=== PATIENT | male | born 1985 | race Caucasian/White ===

== ENCOUNTER 2016-09-14 10:04 | Emergency (ER) | payer OTHER ==
[2016-09-14 10:31] LABS: Hematocrit 43 % (42-52); Hemoglobin 14.4 g/dl (14.0-18.0); Mean Corpuscular HGB Conc 34 g/dl (31-36); Mean Corpuscular Hemoglobin 30 pg (27-31); Mean Corpuscular Volume 87 fL (80-94); Mean Platelet Volume 8 um3 (7.4-10.4); Red Blood Count 4.88 10^6/ul (4.0-5.4); Red Cell Distribution Width 13 % (10.5-15); White Blood Count 10.7 10^3/ul (3.5-10.8)
--- NOTE | 2016-09-14 10:40 | RAD ---
Indication: Seizures. Single frontal view of the chest performed at 1015 hours was reviewed. No prior study is available for comparison. No mediastinal shift is noted. Heart is of normal size and configuration. Lung ricketts appear clear. IMPRESSION: NO ACTIVE CARDIOPULMONARY DISEASE IS NOTED.
[2016-09-14 10:43] LABS: ALT 42 U/L (7-52); AST 22 U/L (13-39); Albumin 4.7 g/dL (3.2-5.2); Alkaline Phosphatase 70 U/L (34-104); Anion Gap 11 mmol/L (2-11); BUN/Creatinine Ratio 8.6 (8-20); Blood Urea Nitrogen 10 mg/dL (6-24); CO2 Carbon Dioxide 19 mmol/L (22-32); Calcium 9.4 mg/dL (8.6-10.3); Chloride 107 mmol/L (101-111); Creatine Kinase 134 U/L (10-223); EGFR African American 95.7 (>60); EGFR Non-African American 74.4 (>60); Globulin 2.5 g/dL (2-4); Glucose 134 mg/dL (70-100); Potassium 3.9 mmol/L (3.5-5.0); Sodium 137 mmol/L (133-145); Total Protein 7.2 g/dL (6.4-8.9)
[2016-09-14] MEDS ORDERED: LORazepam INJ* 2 MG/ML 1 ML VIAL IV PUSH ONE (10:52)
[2016-09-14 11:04] LABS: Alcohol < 10 mg/dL (<10)
[2016-09-14 11:13] LABS: TSH (Thyroid Stimulating Horm) 1.76 mcIU/mL (0.34-5.60)
--- NOTE | 2016-09-14 12:09 | RAD ---
Indication: Seizures, left orbital hematoma. CT of the brain was performed without IV contrast. Ventricular structures are midline. No midline shift is noted. The extraction spaces are unremarkable. There is no evidence of intracranial mass or hemorrhage. No other high or low density lesions are identified. Mastoid air cells and paranasal sinuses are otherwise unremarkable. When compared to previous exam of January 31, 2011 no significant change is noted. IMPRESSION: No intracranial mass or hemorrhage is noted.
--- NOTE | 2016-09-14 12:13 | RAD ---
Indication: Left orbit injury. CT of the facial bones was obtained in the axial plane. Sagittal and coronal reconstructed images were obtained. The nasal arch demonstrates no evidence of fracture. The orbits are intact without evidence of fracture. Zygomatic arch and skull base demonstrates no fracture. The maxilla including the pterygoid plates and hard palate are unremarkable with no fracture. The nasal spine is unremarkable. Mandible demonstrates no evidence of fracture. Hyoid bone and visualized cervical spine are unremarkable. IMPRESSION: No fracture of the facial bones is identified.
[2016-09-14] MEDS ORDERED: Ibuprofen TAB* 400 MG PO ONE (13:02)
[2016-09-14] MEDS ORDERED: lamoTRIgine TAB(*) 25 MG PO ONE (13:07)
[2016-09-14] MEDS ORDERED: lamoTRIgine TAB(*) 100 MG PO ONE (14:00)
[2016-09-14 14:17] LABS: Urine Bacteria Absent (Absent); Urine Bilirubin Negative (Negative); Urine Glucose Negative (Negative); Urine Nitrite Negative (Negative)
[2016-09-14 15:06] VITALS: BP 121/66
[2016-09-16 13:49] LABS: Levetiracetam <2.0 mcg/mL
[2016-09-16 13:55] LABS: Lamotrigine 6.7 mcg/mL (2.5 - 15.0)
--- NOTE | 2016-09-28 18:27 | ED ---
Jg Daniels Billy, scribed for Alisa Longo MD on 09/14/16 at 1045 . Neurological HPI - HPI Summary HPI Summary: Patient is a 31 year-old male with a history of seizures BIBA to [facility] for evaluation of a seizure this morning. He presents to the ED with abrasions to the left eye and nose, and he is post-ictal. He is here in the ED with his mother, although she states that she did not witness the seizure. She states that she received a phone call from a friend who notified her that her son was in the hospital after a seizure. To the mother's knowledge, the patient's last seizure was in May 2016. The patient follows Dr. Medina for neurology. He takes 2 lamotrigine in the morning as well as 2 lamotrigine and 4 zonisamide at night. He also takes Prozac for depression. The mother reports that he missed his morning medications today. - History of Current Complaint Chief Complaint: EDSeizure Stated Complaint: SEIZURE Time Seen by Provider: 09/14/16 10:11 Hx Obtained From: Patient, Family/Accounts Supervisor - mother Onset/Duration: Sudden Onset Timing: Intermittent Episodes Lasting: - minutes at most Onset Severity: Moderate Current Severity: None Seizure Severity: Moderate Number of Seizures: 1 Neurological Deficit Location: Generalized Pain Intensity: 0 Pain Scale Used: 0-10 Numeric Character: Other: - seizure Syncope Context: Unwitnessed - unwitnessed by mother Frequency: Episodes x___ - 1, Episodes Lasting ____ (in Mins/Days/Weeks/Years) Seizure Character: Total-Clonic Aggravating: Unknown - missed his morning medications Alleviating: Spontanious Resolution Associated Signs and Symptoms: Positive: Confusion - post ictal initially, now resolved TPA Considered: No Related Hx: Seizure - hx of, on meds - Allergy/Home Medications Allergies/Adverse Reactions: Allergies Allergy/AdvReac Type Severity Reaction Status Date / Time No Known Allergies Allergy Verified 09/27/12 17:28 PMH/Surg Hx/FS Hx/Imm Hx Previously Healthy: No Endocrine/Hematology History: Denies: Hx Diabetes Neurological History: Reports: Hx Seizures Psychiatric History: Reports: Hx Depression - Surgical History Hx Anesthesia Reactions: No Infectious Disease History: No Infectious Disease History: Denies: Traveled Outside the [place] in Last 30 Days - Family History Known Family History: Positive: Other - breast CA Family History: Father is alive, age 64, has HIV, but that is his adopted father. His biological father at an early age of alcohol and cocaine abuse and his mother is alive with breast cancer. He has a half sister, alive and well. - Social History Alcohol Amount: Per medical records, the patient drinks alcohol in excess. Hx Substance Use: Yes Substance Use Type: Reports: Marijuana Hx Tobacco Use: Yes Smoking Status (MU): Current Every Day Smoker Review of Systems Negative: Fever Eyes: Negative ENT: Negative Cardiovascular: Negative Respiratory: Negative Gastrointestinal: Negative Musculoskeletal: Negative Neurological: Other - seizure Positive: Headache Psychological: Normal All Other Systems Reviewed And Are Negative: Yes Physical Exam Triage Information Reviewed: Yes Vital Signs On Initial Exam: Initial Vitals Temp Pulse Resp BP Pulse Ox 99.1 F 107 19 130/68 97 09/14/16 10:05 09/14/16 10:05 09/14/16 10:05 09/14/16 10:05 09/14/16 10:05 Vital Signs Reviewed: Yes Appearance: Positive: No Pain Distress, Well-Nourished, Ill-Appearing - tachycardia noted. Negative: Signs of Trauma Skin: Positive: Warm, Dry Head/Face: Positive: Other - There is an abrasion to the nasal bridge, as well as an abrasion and swelling to the left periorbital region. Eyes: Positive: EOMI, DESTINI, Conjunctiva Clear ENT: Positive: Hearing grossly normal, TMs normal. Negative: Muffled/hoarse voice Neck: Positive: Supple, Nontender, No Lymphadenopathy Respiratory/Lung Sounds: Positive: Clear to Auscultation, Breath Sounds Present Cardiovascular: Positive: RRR, Pulses are Symmetrical in both Upper and Lower Extremities. Negative: Murmur Abdomen Description: Positive: Nontender, Soft. Negative: Distended, Guarding Bowel Sounds: Positive: Present Musculoskeletal: Positive: Strength/ROM Intact. Negative: Edema Left, Edema Right Neurological: Positive: Sensory/Motor Intact, Alert, Oriented to Person Place, Time, CN Intact II-III, Other - Patient is post-ictal, later resolves. Negative : Facial Droop, Focal Deficit @, Slurred Speech Psychiatric: Positive: Affect/Mood Appropriate Diagnostics - Vital Signs Vital Signs Temp Pulse Resp BP Pulse Ox 09/14/16 10:08 99.1 F 110 27 130/68 97 09/14/16 10:05 99.1 F 107 19 130/68 97 - Laboratory Lab Results: Lab Results 09/14/16 09/14/16 Range/Units 10:14 10:15 WBC 10.7 (3.5-10.8) 10^3/ul RBC 4.88 (4.0-5.4) 10^6/ul Hgb 14.4 (14.0-18.0) g/dl Hct 43 (42-52) % MCV 87 (80-94) fL MCH 30 (27-31) pg MCHC 34 (31-36) g/dl RDW 13 (10.5-15) % Plt Count 300 (150-450) 10^3/ul MPV 8 (7.4-10.4) um3 Neut % (Auto) 78.4 (38-83) % Lymph % (Auto) 13.1 L (25-47) % [place] % (Auto) 7.2 (1-9) % Eos % (Auto) 0.4 (0-6) % Baso % (Auto) 0.9 (0-2) % Absolute Neuts (auto) 8.4 H (1.5-7.7) 10^3/ul Absolute Lymphs (auto) 1.4 (1.0-4.8) 10^3/ul Absolute Monos (auto) 0.8 (0-0.8) 10^3/ul Absolute Eos (auto) 0 (0-0.6) 10^3/ul Absolute Basos (auto) 0.1 (0-0.2) 10^3/ul Absolute Nucleated RBC 0 10^3/ul Nucleated RBC % 0 POC Glucose (mg/dL) 91 (74-106) mg/dL Result Diagrams: 09/14/16 10:15 09/14/16 10:15 Lab Statement: Any lab studies that have been ordered have been reviewed, and results considered in the medical decision making process. - Radiology CXR Xray Interpretation: No Acute Changes Radiology Interpretation Completed By: Radiologist - CT brain CT Interpretation: No Acute Changes CT Interpretation Completed By: Radiologist maxillofacial CT Interpretation: No Acute Changes CT Interpretation Completed By: Radiologist - EKG 1002 Cardiac Rate: Tachycardia - 105 bpm EKG Rhythm: Sinus Tachycardia ST Segment: Non-Specific - Non-specific ST/T-wave changes, no acute changes EKG Interpretation: nml AV and IV conduction time, nml QTc, negative axis -5 EKG Comparison: No Significant Change - Negative axis compared to 01/31/2011 Re-Evaluation - Re-Evaluation First Eval Re-Evaluation Time: 13:45 - headache gone, no longer post ictal , no seizure activity Change: Improved Course/Dx - Course Assessment/Plan: 31 year-old male coming to the ED for evaluation of one seizure this morning. He has a history of seizures, for which he normally takes 2 lamotrigine in the morning as well as 2 lamotrigine and 4 zonisamide at night. However, he did not take his morning medications today. EKG shows sinus tachycardia with nonspecific ST/T-wave changes, normal QTc, without any acute changes. CXR shows no acute findings. Brain and maxillofacial CT imaging show no acute findings. In the ED course, patient was given morphine and ativan. Patient care discussed with Dr. Agosto, who advised us to give him his morning dose of lamictal and to increase zonisamide to 500mg daily. Patient will be discharged home to follow up with PCP. - Differential Dx Differential Diagnoses Neuro: Positive: Medication Reaction, Metabolic Abnormality, Seizure Disorder - Diagnoses Provider Diagnoses: acute on chronic seizure disorder - Physician Notifications Discussed Care of Patient With: Dr. Agosto (neurology) @ 1257: recommends to increased zonisamide, give him his morning dose of lamictal in the ED, and to prepare to discharge. Discharge - Discharge Plan Condition: Stable Disposition: HOME Prescriptions: Zonisamide(NF) [Zonegran(NF)] 500 mg PO DAILY #100 cap Patient Education Materials: Recurrent Seizures in Adults (ED) Referrals: Marie Medina MD [Medical Doctor] - 1 Week Additional Instructions: RETURN TO THE EMERGENCY ROOM WITH ANY MORE SEIZURES. TAKE MEDICATIONS DIRECTED; INCREASE ZONISAMIDE TO 500MG DAILY. The documentation as recorded by the Jg flood Billy accurately reflects the service I personally performed and the decisions made by , Alisa Longo MD.
== END 2016-09-14 15:13 | disposition home or self-care (01) ==
LOC: ED 10:04
DX: G40.909 Epilepsy, unspecified, not intractable, without status epilepticus (principal); R56.9 Unspecified convulsions; S00.212A Abrasion of left eyelid and periocular area, initial encounter; X58.XXXA Exposure to other specified factors, initial encounter; Y93.9 Activity, unspecified; Y92.9 Unspecified place or not applicable; Y99.9 Unspecified external cause status; R41.0 Disorientation, unspecified
CPT/HCPCS: 36415; 70450; 70486; 71010; 80053; 80175; 80177; 80203; 80320; 81003; 81015; 82550; 83605; 83735; 84443; 85025; 85610; 85730; 86703; 93005; 96374; 99283; A9270-GY; G0480; J2060

== ENCOUNTER 2018-12-24 17:40 | Inpatient (IN) | payer OTHER ==
[2018-12-24] MEDS ORDERED: Acetaminophen TAB* 325 MG ONE (17:48)
[2018-12-24] MEDS ORDERED: Ondansetron ODT TAB* 4 MG ONE ×2 (17:48→18:30)
[2018-12-24] MEDS ORDERED: Ibuprofen TAB* 400 MG ONE (18:30)
[2018-12-24] MEDS ORDERED: Ibuprofen TAB* 400 MG PO ONE (18:37)
[2018-12-24] MEDS ORDERED: Ondansetron ODT TAB* 4 MG PO ONE (18:37)
[2018-12-24] MEDS ORDERED: Levofloxacin 750 MG IVPREMIX(* 750 MG/150 ML BAG IVPB ONE (19:04)
[2018-12-24] MEDS ORDERED: NS 0.9% 1000 ML** 1,000 ML IV ONE ×2 (19:04→20:22)
--- NOTE | 2018-12-24 19:04 | ED ---
Abdominal Pain/Male - HPI Summary HPI Summary: A 33 y/o male presents to [facility] with a chief complaint of abdominal pain for the past three days. He also reports back, neck, eyes and jaw pain since then. He notes that last night he was vomiting and had a fever, he was reportedly shaking and sweating. He last took Tylenol around 15:00 today. He denies any cough or congestion. At triage he rated his pain as a 7/10 in severity. He is reportedly allergic to Depakote. - History of Current Complaint Chief Complaint: EDAbdPain Stated Complaint: FEVER/VOMITING/BACK PAIN PER PT Time Seen by Provider: 12/24/18 18:58 Hx Obtained From: Patient Onset/Duration: Sudden Onset, Lasting Days, Still Present Timing: Constant, Lasting Days Severity Initially: Severe Severity Currently: Severe Pain Intensity: 7 Pain Scale Used: 0-10 Numeric Location: Diffuse Radiates: Yes Radiates to: Back Character: Other: - unable to describe Aggravating Factor(s): Nothing Alleviating Factor(s): Nothing Associated Signs And Symptoms: Positive: Diaphoresis, Fever, Back Pain, Nausea, Vomiting - Allergies/Home Medications Allergies/Adverse Reactions: Allergies Allergy/AdvReac Type Severity Reaction Status Date / Time No Known Allergies Allergy Verified 09/27/12 17:28 Home Medications: Home Medications FLUoxetine CAP* [PROzac CAP*] 40 mg PO DAILY 12/24/18 [History Confirmed ] Zonisamide(NF) [Zonegran(NF)] 200 mg PO QAM 12/24/18 [History Confirmed 12/24/18 ] Zonisamide(NF) [Zonegran(NF)] 300 mg PO QPM 12/24/18 [History Confirmed 12/24/18 ] lamoTRIgine [Lamotrigine ER] 300 mg PO BID 12/24/18 [History Confirmed 12/24/18] PMH/Surg Hx/FS Hx/Imm Hx Endocrine/Hematology History: Denies: Hx Diabetes Neurological History: Reports: Hx Seizures Psychiatric History: Reports: Hx Depression - Surgical History Hx Anesthesia Reactions: No Infectious Disease History: No Infectious Disease History: Denies: Traveled Outside the [place] in Last 30 Days - Family History Known Family History: Positive: Other - breast CA Family History: Father is alive, age 64, has HIV, but that is his adopted father. His biological father at an early age of alcohol and cocaine abuse and his mother is alive with breast cancer. He has a half sister, alive and well. - Social History Alcohol Use: sober 2 years Alcohol Amount: Per medical records, the patient drinks alcohol in excess. Hx Substance Use: Yes Substance Use Type: Reports: Marijuana Hx Tobacco Use: Yes Smoking Status (MU): Current Every Day Smoker Review of Systems Positive: Fever - 101.2 at triage, Chills, Skin Diaphoresis, Other - positive: shaking Positive: Other - negative: congestion Negative: Cough Positive: Abdominal Pain, Vomiting, Nausea All Other Systems Reviewed And Are Negative: Yes Physical Exam - Summary Physical Exam Summary: Appearance: The patient is well-nourished in no acute distress and in no acute pain. Skin: The skin is warm and dry and skin color reflects adequate perfusion. HEENT: The head is normocephalic and atraumatic. The pupils are equal and reactive. The conjunctivae are clear and without drainage. Nares are patent and without drainage. Mouth reveals moist mucous membranes and the throat is without erythema and exudate. The external ears are intact. The ear canals are patent and without drainage. The tympanic membranes are intact. Neck: The neck is supple with full range of motion and non-tender. There are no carotid bruits. There is no neck vein distension. Respiratory: Chest is non-tender. Lungs are clear to auscultation and breath sounds are symmetrical and equal. Cardiovascular: Heart is tachycardic. There is no murmur or rub auscultated. There is no peripheral edema and pulses are symmetrical and equal. Abdomen: The abdomen is soft and non-tender. There are normal bowel sounds heard in all four quadrants and there is no organomegaly palpated. Musculoskeletal: There is no back tenderness noted. Extremities are non-tender with full range of motion. There is good capillary refill. There is no peripheral edema or calf tenderness elicited. Neurological: Patient is alert and oriented to person, place and time. The patient has symmetrical motor strength in all four extremities. Cranial nerves are grossly intact. Deep tendon reflexes are symmetrical and equal in all four extremities. Psychiatric: The patient has an appropriate affect and does not exhibit any anxiety or depression. Triage Information Reviewed: Yes Vital Signs On Initial Exam: Initial Vitals Temp Pulse Resp BP Pulse Ox 101.2 F 119 18 140/82 99 08//19 17:43 12/24/18 17:43 12/24/18 17:43 12/24/18 17:43 12/24/18 17:43 Vital Signs Reviewed: Yes Procedures - Procedure Summary Procedure Summary: A lumbar puncture was obteined under aseptic conditions in the sitting position. CSF was obtained on the first pass which was grossly clear. His opening pressure was 21 cm which was about the level of his head. He tolerated it well. Diagnostics - Vital Signs Vital Signs Temp Pulse Resp BP Pulse Ox 12/24/18 17:43 101.2 F 119 18 140/82 99 - Laboratory Result Diagrams: 12/24/18 19:25 12/24/18 19:25 Lab Statement: Any lab studies that have been ordered have been reviewed, and results considered in the medical decision making process. - Radiology CXR Radiology Interpretation Completed By: ED Physician Summary of Radiographic Findings: No acute process. Pending official imaging report. Re-Evaluation - Re-Evaluation First Eval Re-Evaluation Time: 20:24 Change: Unchanged Second Eval Re-Evaluation Time: 21:19 Change: Unchanged Comment: LP Abdominal Pain Male Course/Dx - Course Course Of Treatment: Mr. Munson presented with 3 days of high fevers and headaches without really any other symptomatology aside from nausea and vomiting which started today. He was febrile on arrival and tachycardic and therefore met septic criteria. He was given fluids and antibiotics while labs were obtained. I didn't really find a source and he continued to complain of a severe frontal headache therefore I performed a lumbar puncture. The results of which are pending at this time. - Diagnoses Provider Diagnoses: Febrile illness, acute Discharge - Sign-Out/Discharge Documenting (check all that apply): Sign-Out Patient Signing out patient TO: Francisco Kelley Patient Received Moderate/Deep Sedation with Procedure: No - Discharge Plan Condition: Stable Referrals: Shamar Nevarez MD [Primary Care Provider] - - Billing Disposition and Condition Condition: STABLE - Attestation Statements Document Initiated by Scribe: Yes Documenting Scribe: Raymond Ahuja Provider For Whom Scribe is Documenting (Include Credential): Francisco Peterson MD Scribe Attestation: I, Raymond Ahuja, scribed for Francisco Peterson MD on 12/24/18 at 2211. Scribe Documentation Reviewed: Yes Provider Attestation: The documentation as recorded by the scribe, Raymond Ahuja accurately reflects the service I personally performed and the decisions made by me, Francisco Peterson MD Status of Scribe Document: Viewed
[2018-12-24 19:39] LABS: ABS Lymphocytes 0.2 10^3/ul (1.0-4.8); ABS Monocytes 0.4 10^3/ul (0-0.8); ABS Neutrophils 4.8 10^3/ul (1.5-7.7); Eosinophil % 0.1 %; Hematocrit 37 % (42-52); Hemoglobin 12.5 g/dL (14.0-18.0); Lymphocyte % 3.7 %; Mean Corpuscular HGB Conc 34 g/dL (31-36); Mean Corpuscular Hemoglobin 30 pg (27-31); Mean Corpuscular Volume 87 fL (80-94); Mean Platelet Volume 7.5 fL (7.4-10.4); Platelet Count 234 10^3/uL (150-450); Red Blood Count 4.23 10^6 /uL (4.18-5.48); Red Cell Distribution Width 13 % (10-15); White Blood Count 5.4 10^3/uL (3.5-10.8)
[2018-12-24 19:39] LABS: Urine Appearance Cloudy; Urine Bacteria 1+ (Absent); Urine Bilirubin Negative (Negative); Urine Blood Negative (Negative); Urine Color Yellow; Urine Glucose Negative (Negative); Urine Ketones Negative (Negative); Urine Nitrite Negative (Negative); Urine Protein 1+(30 mg/dL) (Negative); Urine Red Blood Cell Trace(0-2/hpf) (Absent); Urine Specific Gravity 1.014 (1.010-1.030); Urine Urobilinogen Negative (Negative); Urine White Blood Cell Absent (Absent)
[2018-12-24 19:51] LABS: Activated Partial Thrombo Time 40.3 seconds (26.0-38.0); INR 1.15 (0.82-1.09)
[2018-12-24 19:56] LABS: Albumin 3.8 g/dL (3.2-5.2); Albumin/Globulin Ratio 1.1 (1-3); C Reactive Protein 187.31 mg/L (<8.01); EGFR African American 117.6 (>60); EGFR Non-African American 97.2 (>60); Globulin 3.6 g/dL (2-4); Potassium 3.9 mmol/L (3.5-5.0); Total Bilirubin 0.4 mg/dL (0.2-1.0); Total Protein 7.4 g/dL (6.4-8.9)
[2018-12-24 19:57] LABS: Troponin I 0.01 ng/mL (<0.04)
[2018-12-24] MEDS ORDERED: Acetaminophen TAB* 325 MG PO ONE (20:27)
[2018-12-24 22:02] LABS: Body Fluid Source Cerebral Spinal
[2018-12-24 22:18] LABS: CSF Glucose 95 mg/dL (40-70)
--- NOTE | 2018-12-24 22:52 | ED ---
Progress - Progress Note Progress Note: This pt is a sign out from Dr. Peterson to Dr. Kelley at shift change on 12/24/18 at 22:00 pending CSF results. Course/Dx - Course Course Of Treatment: This pt was signed out by Dr. Peterson pending CSF results. Discussed with Dr. Luke, hospitalist, who accepted the pt for admission. - Diagnoses Provider Diagnoses: Febrile illness, acute Discharge - Sign-Out/Discharge Documenting (check all that apply): Patient Departure - Admit to [facility], Receiving Sign-Out Receiving patient FROM: Francisco Peterson Patient Received Moderate/Deep Sedation with Procedure: No - Discharge Plan Condition: Stable Disposition: ADMITTED TO [facility] - Billing Disposition and Condition Condition: STABLE Disposition: Admitted to [facility] - Attestation Statements Document Initiated by Artie: Yes Documenting Scribe: Idalia Lerner Provider For Whom Artie is Documenting (Include Credential): Francisco Kelley MD Scribtommie Attestation: Idalia Daniels, prabhakaribed for Francisco Kelley MD on 12/26/18 at 0607. Scribe Documentation Reviewed: Yes Provider Attestation: The documentation as recorded by the Idalia flood accurately reflects the service I personally performed and the decisions made by , Francisco Kelley MD Status of Scribe Document: Viewed
[2018-12-24 23:04] LABS: Body Fluid Mono 36 %
[2018-12-25] MEDS ORDERED: Acetaminophen TAB* 325 MG PO PRN (02:20)
[2018-12-25] MEDS ORDERED: NS 0.9% 1000 ML** 1,000 ML IV SCH (02:45)
[2018-12-25] MEDS ORDERED: cefTRIAXone(*) 2 GM in NS 0.9% 100 ML* 100 ML IVPB SCH (03:00)
[2018-12-25] MEDS ORDERED: Vancomycin per Pharmacy* NOTE FOLLOW UP SCH (03:00)
[2018-12-25] MEDS ORDERED: Vancomycin(*) 1,250 MG in NS 0.9% 250 ML* 250 ML IVPB ONE (03:30)
[2018-12-25 03:52] LABS: Rapid Strep Molecular Negative (Negative)
--- NOTE | 2018-12-25 05:18 | HP ---
CC: Dr. Nevarez; Dr. Medina * HISTORY AND PHYSICAL: DATE OF ADMISSION: 12/25/18 PRIMARY CARE PROVIDER: Dr. Nevarez. NEUROLOGIST: Dr. Medina. CHIEF COMPLAINT: Headache and fever. HISTORY OF PRESENT ILLNESS: Mr. Munson is a 33-year-old male who has a history of depression and epilepsy, who states that he has had 3 days of severe headache and fevers up to 103 at home. He states he has had shaking chills. He denies any sick contacts. He states that he has had significant neck and back ache and feels achy allover. He is noted to be more tired than usual. He does admit to mild light sensitivity. He has also been having intermittent nausea and vomiting. He admits to shortness of breath with exertion. Denies any cough or sputum production. Denies any dysuria. Denies any rash or skin breakdown. He denies any recent tick bites. He does garden with his mom, however, and she recently was diagnosed of lyme disease. PAST MEDICAL HISTORY: 1. Epilepsy. 2. Depression. PAST SURGICAL HISTORY: None. MEDICATIONS: 1. Fluoxetine 40 mg p.o. daily. 2. Lamotrigine 300 mg p.o. b.i.d. 3. Phenacemide 200 mg p.o. q.a.m., 300 mg p.o. q.p.m. ALLERGIES: DEPAKOTE. FAMILY HISTORY: Mom is living, she has a history of breast cancer and hypothyroidism. Dad's history if unknown, he is . SOCIAL HISTORY: The patient is a nonsmoker. He does not drink alcohol. 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 He is not . He has no children. He indicates Evangelista Yousif would be his surrogate decision maker. REVIEW OF SYSTEMS: In addition to the HPI, a complete 11-system review of systems is obtained. The patient does admit to anorexia and generalized weakness; otherwise the rest of the review systems is negative. PHYSICAL EXAMINATION GENERAL: The patient is a well-developed young male, seen sitting up in the stretcher in no acute distress. VITAL SIGNS: Blood pressure 103/61, pulse 80, respirations 19, temp 101.2, O2 sat 97% on room air. HEENT: Pupils are equal and round. Extraocular muscles are intact. Oropharynx , there appears to be perhaps a slight tonsillar exudate on the right. NECK: There is no submandibular, cervical or supraclavicular adenopathy. PULMONARY: Lungs are clear to auscultation bilaterally, slightly decreased on the right. CARDIAC: Normal S1, S2. Regular rate and rhythm. I do not appreciate any murmurs. There is no lower extremity edema. ABDOMEN: Bowel sounds present. Abdomen is soft, nontender, nondistended. MUSCULOSKELETAL: There is no cyanosis or clubbing of the digits. There is full active range of motion of all 4 extremities. SKIN: Warm and dry. There are no rashes. NEUROLOGIC: Cranial nerves II through XII are grossly intact. Sensation is intact to light touch throughout. Strength is 5/5 and symmetric to both upper and lower extremities bilaterally. PSYCHIATRIC: The patient is alert. He is oriented x3. Affect appears appropriate. DIAGNOSTIC STUDIES/LAB DATA: WBC 5.4, hemoglobin 12.5, hematocrit 37, platelets 234, INR 1.15. Sodium 134, potassium 3.9, chloride 104, CO2 24, BUN 10, creatinine 0.91, glucose 144, lactic acid 1.3, calcium 9.0. Bilirubin 0.4, AST 29, ALT 40, alk phos 86. Troponin 0.01. CRP 187.31. Albumin 3.8. Urinalysis reveals cloudy urine with specific gravity of 1.014, 1+ protein, 1+ bacteria, and otherwise negative. CSF reveals colorless clear fluid, 3 wbc's, 1 rbc, CSF glucose 95, CSF total protein 49. Chest x-ray to my interpretation appears clear. ASSESSMENT AND PLAN: Mr. Munson is a 33-year-old male who has a history of depression and epilepsy, who presents to the emergency room with 3 days of severe headache and fevers up to 103 at home with associated shaking chills. 1. Sepsis: Secondary to unclear source. At this point, my suspicion is the patient is septic though the source is not clear. On the differential is viral illness versus viral meningitis versus bacterial meningitis, which seems very unlikely as patient is not appearing to be toxic at this time, versus Lyme disease and possibly Lyme meningitis. CSF culture is pending. I have added on herpes PCR and Lyme testing for the CSF. Lyme serology has been sent on the blood. Additionally, given the patient's slight exudate seen on the right tonsil , a rapid strep. The patient received Levaquin in the emergency room, I am going to change this to ceftriaxone 2 g IV q.12 hours and Vancomycin 1 g now, followed by pharmacy dose. The antibiotics can be modified once further testing comes back. The patient at this point remains mildly tachycardic though this is improved from when he presented to the emergency room. I am going to continue normal saline at 100 mL per hour. He will have Tylenol for mild pain and fever greater than 100.4. 2. Epilepsy: The patient will be maintained on his usual dose of the lamotrigine and zonisamide. 3. Depression: Continue Prozac. 4. DVT prophylaxis: According to the Adult Thrombosis Prophylaxis Risk Factor Assessment Guide, the patient has a total risk factor score of 1, making him low risk. Ambulation will be utilized for DVT prophylaxis. 5. Code status is full. TIME SPENT: Sixty-five minutes was spent admitting this patient. [id number] #: [id number] BE
[2018-12-25] MEDS ORDERED: FLUoxetine CAP* 20 MG PO SCH (09:00)
[2018-12-25] MEDS ORDERED: lamoTRIgine TAB(*) 100 MG PO SCH (10:00)
[2018-12-25] MEDS ORDERED: CMCS: Zonisamide (NF) 50 MG CAP PO SCH ×2 (10:00→18:00)
[2018-12-25] MEDS ORDERED: DOXYcycline CAP(*) 100 MG PO SCH (11:00)
--- NOTE | 2018-12-25 11:51 | PN ---
Subjective Date of Service: 12/25/18 Interval History: Patient still had moderate headache, had fever and chills overnight. a/w photosensitivity, generalized weakness/ache, no rash, no abdominal pain/ diarrhea. Reviewed history, he had generalized ache (back, neck,abdomen) since 1 month ago , and fever/chills for 3 days. He denied HIV possibility, last sexual conact 1 year ago, protected Objective Active Medications: Acetaminophen (Tylenol Tab*) 650 mg PO Q4H [facility] Doxycycline Hyclate (Vibramycin Cap(*)) 100 mg PO BID [facility] Last Admin: 12/25/18 11:11 Dose: 100 mg Fluoxetine HCl (Prozac Cap*) 40 mg PO DAILY [facility] Last Admin: 12/25/18 08:48 Dose: 40 mg Lamotrigine (Lamictal Tab(*)) 300 mg PO BID [facility] Last Admin: 12/25/18 10:04 Dose: Not Given Pharmacy Profile Note (Vancomycin Trough Check) 1 note FOLLOW UP 529 ONE Stop: 12/26/18 05:31 Zonisamide (Zonegran (Nf)) 200 mg PO QAM [facility] Last Admin: 12/25/18 10:05 Dose: Not Given Zonisamide (Zonegran (Nf)) 300 mg PO QPM [facility] Vital Signs - 8 hr 12/25/18 12/25/18 12/25/18 08:00 08:06 11:14 Temperature 98.4 F 98.6 F Pulse Rate 89 81 Respiratory 18 18 20 Rate Blood Pressure 103/60 106/59 (mmHg) O2 Sat by Pulse 99 100 Oximetry Oxygen Devices in Use Now: None Exam: Alert Heart: normal S1, s2, no mrmur Lung: clear Abdomen; soft, non tender No rash throat exam: not thrush, no tonsilar exudate LN: 1-2 small lymph nodes on left neck Result Diagrams: 12/24/18 19:25 12/24/18 19:25 Assess/Plan/Problems-Billing Assessment: 33 y/o male with b/g depression and epilepsy on lamotrigine and zonissamide, presented with 3 days duration of fever, headache. Lumbar puncture was done to rule out bacterial meningitis which didn't seem to be. He was screened for lyme disease as he likees to go out every week. Lyme antibody came back positive, acute lyme disease well expains his sympoms - Patient Problems (1) Acute Lyme disease Current Visit: Yes Status: Acute Code(s): A69.20 - LYME DISEASE, UNSPECIFIED SNOMED Code(s): 691685263 (2) Epilepsy Current Visit: Yes Status: Acute Code(s): G40.909 - EPILEPSY, UNSP, NOT INTRACTABLE, WITHOUT STATUS EPILEPTICUS SNOMED Code(s): 80662169 (3) Depression Current Visit: Yes Status: Acute Code(s): F32.9 - MAJOR DEPRESSIVE DISORDER , SINGLE EPISODE, UNSPECIFIED SNOMED Code(s): 37504385 Status and Disposition: discharge today Attestation Documenting Resident: Nazanin Rudolph Supervising Physician: tanmay lucas Attestation: This service has been performed in part by a resident under the direction of a teaching physician.I, tanmay lucas, performed the service, or was physically present during the critical, or elaine portions of the service, furnished by the resident. I participated in the management of the patient.
[2018-12-25] MEDS ORDERED: Vancomycin(*) 1,000 MG in NS 0.9% 250 ML* 250 ML IVPB SCH (12:00)
--- NOTE | 2018-12-25 12:39 | PN ---
Hospitalist Progress Note Date of Service: 12/25/18 Attending Assessment and Plan I have reviewed the subjective and objective parts of residents note of which I agree and supervised HD # 1 on 12/25 33M no sig pMH other than seziure d/o presented with subactue myalgias and acute fever, STERLING na dneck pain foudn to be Lyme +, CSF nrmearkable for neurolyme #Viral like sx, most c/w lyme: Start Doxy for total 14 day course -Tylenol ATC -Agree with resident to discuss other viral causes including HIV #Seizure d/o: Continue meds #DVT: ambulatory #Code Full #Dispo: To home today if tolerates doxy well
[2018-12-25] MEDS ORDERED: Acetaminophen TAB* 325 MG PO SCH (14:00)
--- NOTE | 2018-12-25 14:48 | DS ---
CC: Dr. Shamar Nevarez DISCHARGE SUMMARY: DATE OF ADMISSION: 12/24/18 DATE OF DISCHARGE: 12/25/18 PRIMARY CARE PROVIDER: Dr. Shamar Nevarez. The patient has followup with on discharge. DISPOSITION AT THE TIME OF DISCHARGE: Stable to home. PRIMARY DIAGNOSIS: Lyme disease. SECONDARY DIAGNOSES: 1. Depression. 2. Epilepsy. 3. (?)Asperger syndrome. MEDICATIONS AT THE TIME OF DISCHARGE: 1. Doxycycline 100 mg p.o. b.i.d. for #14 days status post discharge. 2. Fluoxetine 40 mg p.o. daily. 3. Lamotrigine 300 mg p.o. b.i.d. 4. Zonisamide 300 mg p.o. q.p.m. and 200 mg p.o. q.a.m. 5. Acetaminophen 650 mg p.o. q.4 hours scheduled for the next 3 days status post discharge. Medication changes on this admission include doxycycline and Tylenol for acute Lyme. HISTORY OF PRESENT ILLNESS AND HOSPITAL COURSE: A 33-year-old male with above past medical history w albertina presented with 2 weeks of subacute myalgias and 2 days of acute fever to 102 and 103 at home accom panied with headache and neck pain and some shaking chills, but no altered mental status. The patien t presented to the emergency room to get fever evaluate. In the ER, he was febrile to 101.2, mildly tachycardic, otherwise vital signs were stable. Labs showed no leukocytosis, although did have eleva thom C-reactive protein. BMP, liver function testing, urinalysis were normal. Because of headache, a lumbar puncture was done which showed mildly elevated CSF total protein at 49 and glucose, white blo od cells, red blood cells were all normal, otherwise it was clear, uncomplicated tap. Group A strep was done which was negative. He had a tick panel done which ultimately showed Lyme testing. Also th orough physical exam as well as social history including sexual history to rule out acute HIV and ris k for other acute viral illnesses such as EBV, mono, flu or other virus was done and the patient satish ed any recent high risk behaviors. With Lyme antibody testing positive and Western blot still pendin g, presumptive diagnosis of acute Lyme was made given the patient gardens daily with his mother and s ees multiple ticks. On hospital day #1, with Tylenol and doxycycline, the patient's fever defervesced. He was feeling muc h better. Education around Lyme disease was done and he agrees to follow up with primary care. We c ontinue to have CSF as well as other Lyme and tick-borne illness panel pending, and if any positive f indings are present status post discharge, we agree to follow up with the patient. The patient shoul d be discharged on a total course of doxycycline for 14 days for acute Lyme and followup with his [facility] care will be arranged in the meantime. For his ongoing seizure and depression, his home medicat ions were continued. LABS AND STUDIES DONE DURING THIS HOSPITALIZATION: Include a chest x-ray which was negative. Lumbar puncture was done on 12/24/18 which was uncomplicated and was with normal cells other than the excep tion of mildly elevated total protein, not consistent with neuro Lyme. CONSULTANTS DURING THIS HOSPITALIZATION: None. ITEMS TO FOLLOW UP ON STATUS POST DISCHARGE: Lyme disease. Ensure the patient completes course. If there are any other new neurologic symptoms, the patient may need longer course up to 28 days per ID SA guidelines, can follow up with ID as needed. On day of discharge, the patient is ambulating, voiding freely, tolerating diet, afebrile for 12 hour s, he very much likes to go home. He is stable to return. Given presumptive diagnosis of acute Lyme and overall good prognosis with treatment with doxycycline for 14 days. Plan of care was discussed w ith the patient and his family who agree and know when to return to the hospital. TIME SPENT: Thirty minutes was spent planning this discharge with over half of that spent directly a t the bedside of the patient providing direct patient care. If there are any questions about the care of this patient provided during this hospitalization, please do not hesitate to contact us at the [facility] team directly. [phone]/[facility] #: [id number]
[2018-12-25 16:00] VITALS: BP 114/59
[2018-12-26] MEDS ORDERED: Vancomycin Trough Check NOTE FOLLOW UP ONE (05:30)
[2018-12-26 16:11] LABS: HSV 1 PCR, CSF Negative (Negative); HSV 2 PCR, CSF Negative (Negative)
[2018-12-29 16:03] LABS: Lyme CNS IgG Ab Index Interp Negative
== END 2018-12-25 19:00 | disposition home or self-care (01) | DRG 724 ==
LOC: ED 17:40 → MEDTELE 12-25 02:20
PROVIDERS: ADMIT Hospitalist; ATTEND Internal Medicine
PROC: 009U3ZX Drainage of Spinal Canal, Percutaneous Approach, Diagnostic (ICD-10-PCS; principal; 2018-12-25)
DX: A69.20 Lyme disease, unspecified (principal); F84.5 Asperger's syndrome; F17.210 Nicotine dependence, cigarettes, uncomplicated; F32.9 Major depressive disorder, single episode, unspecified; G40.909 Epilepsy, unspecified, not intractable, without status epilepticus; Z88.8 Allergy status to other drugs, medicaments and biological substances; Z80.3 Family history of malignant neoplasm of breast; Z83.49 Family history of other endocrine, nutritional and metabolic diseases
CPT/HCPCS: 36415; 71045; 80053; 81003; 81015; 82040; 82042; 82784; 82945; 83605; 84157; 84484; 85025; 85610; 85730; 86140; 86617; 86618; 87040; 87070; 87086; 87205; 87529; 87641; 87651; 89051; 99284; A9270-GY; J0696; J3370

== ENCOUNTER 2019-05-16 01:48 | Emergency (ER) | payer OTHER ==
[2019-05-16] MEDS ORDERED: NS 0.9% 1000 ML** 1,000 ML IV ONE (01:53)
--- NOTE | 2019-05-16 01:53 | ED ---
Neurological HPI - HPI Summary HPI Summary: Patient is a 33 y/o M presenting to [facility] via EMS for reported grand mal seizure. It is reported that the patient had gone out to a bar, consumed alcohol , and later returned home. While in his bathroom, patient claims that he experienced a seizure with LOC. He notes that he awoke on the bathroom floor. Patient endorses nausea. He called EMS, who note that the patient was standing in his underwear at the door awaiting them. Patient claims Hx of seizure disorder. Limited history is able to be obtained from the patient, he is unwilling to provide most history. Home medications and allergies are reviewed. - History of Current Complaint Stated Complaint: SEIZURE PER EMS Hx Obtained From: Patient - Limited history is able to be obtained from the patient, he is unwilling to provide most history., EMS Hx From Patient Unobtainable Due To: Other - Limited history is able to be obtained from the patient, he is unwilling to provide most history. Onset/Duration: Still Present - nausea, Resolved - seizure Neurological Deficit Location: Generalized Pain Scale Used: 0-10 Numeric Character: Other: - seizure Syncope Context: Loss of Consciousness: Yes - reported Associated Signs and Symptoms: Positive: Seizure, Nausea/Vomiting - Allergy/Home Medications Allergies/Adverse Reactions: Allergies Allergy/AdvReac Type Severity Reaction Status Date / Time divalproex sodium Allergy Unknown Verified 05/16/19 01:52 [facility] Reaction Details PMH/Surg Hx/FS Hx/Imm Hx Endocrine/Hematology History: Denies: Hx Anticoagulant Therapy, Hx Blood Disorders, Hx Blood Transfusions, Hx Bone Marrow Disease, Hx Diabetes, Hx Systemic Lupus Erythematosus, Hx Sickle Cell Disease, Hx Thyroid Disease, Hx Anemia, Hx Unexplained Bleeding, Other Endocrine/Hematological Disorders Cardiovascular History: Denies: Hx Aneurysm, Hx Angina, Hx Angioplasty, Hx Auto Implanted Cardiovert Defib, Hx Cardiac Arrest, Hx Cardiomegaly, Hx Congenital Heart Disease, Hx Congestive Heart Failure, Hx Coronary Artery Disease, Hx Deep Vein Thrombosis, Hx Embolism, Hx Hypercholesterolemia, Hx Hypotension, Hx Hypertension, Hx Pacemaker/ICD, Hx Peripheral Vascular Disease, Hx Rheumatic Fever, Hx Syncope, Hx Valvular Heart Disease, Other Cardiovascular Problems/Disorders Respiratory History: Denies: Hx Asthma, Hx Bronchopulmonary Dysplasia, Hx Chronic Bronchitis, Hx Chronic Obstructive Pulmonary Disease (COPD), Hx Cystic Fibrosis, Hx Lung Cancer , Hx Pleural Effusion, Hx Pneumonia, Hx Pulmonary Edema, Hx Pulmonary Embolism, Hx Seasonal Allergies, Hx Sleep Apnea, Other Respiratory Problems/Disorders GI History: Denies: Hx Cirrhosis, Hx Crohn's Disease, Hx Diverticulosis, Hx Gall Bladder Disease, Hx Gastroesophageal Reflux Disease, Hx Gastrointestinal Bleed, Hx Hiatal Hernia, Hx Irritable Bowel, Hx Jaundice, Hx Obstructive Bowel, Hx Ileostomy, Hx Pyloric Stenosis, Hx Ulcer, Other GI Disorders History: Denies: Hx Acute Renal Failure, Hx Benign Prostatic Hyperplasia, Hx Chronic Renal Failure, Hx Dialysis, Hx Kidney Infection, Hx Kidney Stones, Other Problems/Disorders Musculoskeletal History: Denies: Hx Arthritis, Hx Back Problems, Hx Bursitis, Hx Congenital Bone Abnormalities, Hx Fibromyalgia, Hx Gout, Hx Orthopedic Injury, Hx Osteoporosis, Hx Scoliosis, Hx Tendonitis, Other Musculoskeletal History Sensory History: Denies: Hx Cataracts, Hx Contacts or Glasses, Hx Eye Injury, Hx Eye Prosthesis, Hx Glaucoma, Hx Legally Blind, Hx Macular Degeneration, Hx Vision Problem, Hx Deafness, Hx Hearing Aid, Hx Hearing Problem, Other Sensory Impairments Opthamlomology History: Denies: Hx Cataracts, Hx Contacts or Glasses, Hx Eye Injury, Hx Eye Prosthesis, Hx Glaucoma, Hx Legally Blind, Hx Macular Degeneration, Hx Vision Problem, Other Sensory Impairments Neurological History: Reports: Hx Seizures Denies: Hx Dementia, Hx Developmental Delay, Hx Headaches, Hx Migraine, Hx Nerve Disease, Hx Spinal Cord Injury, Hx Transient Ischemic Attacks (TIA), Other Neuro Impairments/Disorders Psychiatric History: Reports: Hx Depression Denies: Hx Anxiety, Hx Attention Deficit Hyperactivity Disorder, Hx Autism, Hx Eating Disorder, Hx Oppositional Blum Disorder, Hx Panic Disorder, Hx Post Traumatic Stress Disorder, Hx Inpatient Treatment, Hx Community Mental Health Tx, Hx Schizophrenia, Hx Bipolar Disorder, Hx Suicide Attempt, Hx of Violent Episodes Against Others, Other Psychiatric Issues/Disorders - Cancer History Hx Hematologic Symptoms: No Hx Chemotherapy: No Hx Radiation Therapy: No Hx Palliative Cancer Treatment: No - Surgical History Hx Anesthesia Reactions: No Infectious Disease History: Denies: Hx Clostridium Difficile, Hx Hepatitis, Hx Human Immunodeficiency Virus (HIV), Hx of Known/Suspected MRSA, Hx Shingles, Hx Tuberculosis, History Other Infectious Disease - Family History Known Family History: Positive: Other - breast CA Family History: Father is alive, age 64, has HIV, but that is his adopted father. His biological father at an early age of alcohol and cocaine abuse and his mother is alive with breast cancer. He has a half sister, alive and well. - Social History Alcohol Use: None Alcohol Amount: Per medical records, the patient drinks alcohol in excess. Hx Substance Use: Yes Substance Use Type: Reports: Marijuana Hx Tobacco Use: Yes Smoking Status (MU): Current Every Day Smoker Have You Smoked in the Last Year: Yes Review of Systems Constitutional: Other - positive - alcohol consumption Positive: Nausea Neurological: Other - positive - seizure All Other Systems Reviewed And Are Negative: No - Comments Additional Review of Systems Comments: Limited history is able to be obtained from the patient, he is unwilling to provide most history. Physical Exam - Summary Physical Exam Summary: Appearance: Well-appearing, Well-nourished, lying in bed comfortably Skin: Warm, dry, no obvious rash Eyes: sclera anicteric, no conjunctival pallor ENT: mucous membranes moist, pharynx appears normal Neck: Supple, nontender Respiratory: Clear to auscultation, no signs of respiratory distress Cardiovascular: Normal S1, S2. No murmurs. Normal distal pulses in tibial and radial bilaterally. Abdomen: Soft, nontender, normal active bowel sounds present Musculoskeletal: Normal, Strength/ROM Intact Neurological: A&Ox3, awake and alert, apparent alcohol intoxication Psychiatric: does not appear anxious or depressed Triage Information Reviewed: Yes Vital Signs Reviewed: Yes Completion Of Physical Exam Limited Due To: Level 5 Procedures - Sedation Patient Received Moderate/Deep Sedation with Procedure: No Diagnostics - Laboratory Result Diagrams: 05/16/19 02:08 05/16/19 02:08 Lab Statement: Any lab studies that have been ordered have been reviewed, and results considered in the medical decision making process. Course/Dx - Course Course Of Treatment: Patient is a 33 y/o M presenting to [facility] via EMS for reported grand mal seizure. It is reported that the patient had gone out to a bar, consumed alcohol, and later returned home. While in his bathroom, patient claims that he experienced a seizure with LOC. He notes that he awoke on the bathroom floor. Patient endorses nausea. He called EMS, who note that the patient was standing in his underwear at the door awaiting them. Patient claims Hx of seizure disorder. Limited history is able to be obtained from the patient , he is unwilling to provide most history. Bloodwork was obtained. Bloodwork within normal limits with exception of Hct 40, potassium 3, carbon dioxide 19, anion gap 13, glucose 162. Serum alcohol was 113. During ED course, patient received fluids and Zofran 8 mg IV. Patient was discharged to home with PCP follow up. - Diagnoses Provider Diagnoses: Alcohol intoxication, Epilepsy Discharge ED - Sign-Out/Discharge Documenting (check all that apply): Patient Departure - discharge - Discharge Plan Condition: Good Disposition: HOME Patient Education Materials: Epilepsy (ED), Alcohol Intoxication (ED) Referrals: Shamar Nevarez MD [Primary Care Provider] - Additional Instructions: Alcohol is well known to lower the seizure threshold and could have contributed to whatever happened tonight. I would recommend refraining from alcohol entirely , or reduce your intake substantially. - Billing Disposition and Condition Condition: GOOD Disposition: Home - Attestation Statements Document Initiated by Artie: Yes Documenting Scribe: FAUZIA TERRY Provider For Whom Artie is Documenting (Include Credential): NUHA LINDA MD Scribe Attestation: I, FAUZIA TERRY, scribed for NUHA LINDA MD on 05/16/19 at 0629. Scribe Documentation Reviewed: Yes Provider Attestation: The documentation as recorded by the FAUZIA flood accurately reflects the service I personally performed and the decisions made by me, NUHA LINDA MD Status of Scribe Document: Viewed
[2019-05-16] MEDS ORDERED: Ondansetron INJ* 2 MG/ML VIAL IV ONE (01:55)
[2019-05-16 02:14] LABS: ABS Basophils 0.1 10^3/ul (0-0.2); ABS Eosinophils 0.1 10^3/ul (0-0.6); ABS Lymphocytes 3.2 10^3/ul (1.0-4.8); ABS Monocytes 0.6 10^3/ul (0-0.8); ABS Neutrophils 6.2 10^3/ul (1.5-7.7); Eosinophil % 0.6 %; Hematocrit 40 % (42-52); Hemoglobin 14.1 g/dL (14.0-18.0); Lymphocyte % 31.2 %; Mean Corpuscular HGB Conc 35 g/dL (31-36); Mean Corpuscular Hemoglobin 30 pg (27-31); Mean Corpuscular Volume 86 fL (80-94); Mean Platelet Volume 7.5 fL (7.4-10.4); Nucleated Red Blood Cells % 0.2; Platelet Count 367 10^3/uL (150-450); Red Blood Count 4.68 10^6 /uL (4.18-5.48); Red Cell Distribution Width 14 % (10-15); White Blood Count 10.2 10^3/uL (3.5-10.8)
[2019-05-16 02:29] LABS: Albumin 4.9 g/dL (3.2-5.2); Albumin/Globulin Ratio 1.8 (1-3); BUN/Creatinine Ratio 14.8 (8-20); Calcium 9.5 mg/dL (8.6-10.3); EGFR African American 96.5 (>60); EGFR Non-African American 79.7 (>60); Globulin 2.7 g/dL (2-4); Total Bilirubin 0.9 mg/dL (0.2-1.0); Total Protein 7.6 g/dL (6.4-8.9)
[2019-05-16] MEDS ORDERED: Potassium Chlor TAB* 20 MEQ TAB.ER PO ONE (03:35)
[2019-05-16 03:48] VITALS: BP 101/54
--- OUTSIDE RECORDS SUMMARY | 2019-05-16 03:58 | XMS REPORT | Continuity of Care Document ---
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 Onset: Bronchitis Shamar Nevarez M.D. Onset: 07/28/2017 Anxiety state Shamar Nevarez M.D. Onset: 10/15/2013 Malaise and fatigue Shamar Nevarez M.D. Onset: 08/09/2013 Nausea and vomiting Shamar Nevarez M.D. Onset: 05/03/2013 Epilepsy Shamar Nevarez M.D. Onset: 05/03/2013 Depressive disorder Shamar Nevarez M.D. 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 Tablets Lamictal 1 twice a day 60tabs G40.409 Shamar Nevarez, 06/27/2004 150mg M.D. Tablets Zonegran 4 tabs at hs Unknown 100mg Capsules History Medications Fluoxetine HCL 1 by mouth every day 5caps Shamar Nevarez, 12/17/2018 - 20mg for depression M.D. 03/29/2019 Capsules Medications Administered in Office Medication SIG Qnty Indications Ordering Provider Date TB Intradermal Test Selin Mott NP 10/18/2015 Injection Immunizations CPT Code Status Date Vaccine Lot # [id number] Given 09/27/2015 Tdap Tetanus, W Pertussis [id number] 80437 Given 06/30/2003 DT Immunization 73480 Given 02/13/1996 Hepatitis B Immunization, -19 Years 32403 Given 04/23/1995 Hepatitis B Immunization, [place]-19 Years 52580 Given 03/08/1995 Hepatitis B Immunization, [place]-19 Years 93571 Given 09/28/1992 IPV Inactive Poliovirus Vaccine 43219 Given 09/28/1992 MMR Virus Immunization 87057 Given 09/28/1992 DTaP Immunization 71124 Given 08/14/1989 (Hib) Hemoplilus Influenza B 81282 Given 02/05/1989 DTaP Immunization 34635 Given 02/05/1989 IPV Inactive Poliovirus Vaccine 59832 Given 12/05/1988 MMR Virus Immunization 45970 Given 02/12/1988 DTaP Immunization 68070 Given 1987 IPV Inactive Poliovirus Vaccine 17351 Given 1987 DTaP Immunization 94423 Given 1987 IPV Inactive Poliovirus Vaccine 98809 Given 1987 DTaP Immunization 31984 Given 1987 Varicella (Chicken Pox) Immunization Vital Signs Date Vital Result Comment 03/30/2019 11:32am BP Systolic 116 mmHg BP Diastolic 60 mmHg Heart Rate 60 /min Body Temperature 98.1 F Respiratory Rate 16 /min Height 65 inches 5'5" Weight 150.25 lb BMI (Body Mass Index) 25.0 kg/m2 12/24/2017 10:03am BP Systolic 118 mmHg BP Diastolic 70 mmHg Heart Rate 64 /min Body Temperature 97.8 F Respiratory Rate 16 /min Height 65 inches 5'5" Weight 145.00 lb BMI (Body Mass Index) 24.1 kg/m2 Results Test Date Facility Test Result H/L Range Note Laboratory test 12/24/2018 [facility] Lactic Acid 0.4 mmol/L Low 0.5-2.0 1 finding Laboratory test 12/24/2018 [facility] [place] Total 49 mg/dL High 15-45 2, 3 finding Protein CSF Glucose 95 mg/dL High 40-70 4 CSF Culture & 12/24/2018 [facility] CSF Culture Gram SEE RESULT BELOW 5 Sensitivity Stain CSF Cell Count 12/24/2018 [facility] Body Fluid Appearance Clear Body Fluid Color Colorless Body Fluid Volume 1.5 mL Body Fluid WBC 3 /mcL Body Fluid RBC 1 /mcL Body Fluid Lymph 64 % Body Fluid [place] 36 % Body Fluid Total Cells Counted 42 Body Fluid Source Cerebral Spinal CSF Tube # 4 Fluid Reviewed By MD (SEE NOTE) 6 CBC Auto Diff 12/24/2018 [facility] White Blood Count 5.4 10^3/uL Normal 3.5- 10.8 Red Blood Count 4.23 10^6/uL Normal 4.18-5.48 Hemoglobin 12.5 g/dL Low 14.0-18.0 Hematocrit 37 % Low 42-52 Mean Corpuscular Volume 87 fL Normal 80-94 Mean Corpuscular Hemoglobin 30 pg Normal 27-31 Mean Corpuscular HGB Conc 34 g/dL Normal 31-36 Red Cell Distribution Width 13 % Normal 10-15 Platelet Count 234 10^3/uL Normal 150-450 Mean Platelet Volume 7.5 fL Normal 7.4-10.4 Abs Neutrophils 4.8 10^3/uL Normal 1.5-7.7 Abs Lymphocytes 0.2 10^3/uL Low 1.0-4.8 Abs Monocytes 0.4 10^3/uL Normal 0-0.8 Abs Eosinophils 0.0 10^3/uL Normal 0-0.6 Abs Basophils 0.0 10^3/uL Normal 0-0.2 Abs Nucleated RBC 0.0 10^3/uL Granulocyte % 88.8 % Lymphocyte % 3.7 % Monocyte % 6.9 % Eosinophil % 0.1 % Basophil % 0.5 % Nucleated Red Blood Cells % 0.0 Urinalysis Profile 12/24/2018 [facility] Urine Color Yellow Urine Appearance Cloudy Urine Specific Kirby 1.014 Normal 1.010-1.030 Urine pH 7.0 Normal 5-9 Urine Urobilinogen Negative Negative Urine Ketones Negative Negative Urine Protein 1+(30 mg/dL) Abnormal Negative Urine Leukocytes Negative Negative Urine Blood Negative Negative * * Abnormal Negative 7 Urine Nitrite Negative Negative Urine Bilirubin Negative Negative Urine Glucose Negative Negative Urine White Blood Cell Absent Absent Urine Red Blood Cell Trace(0-2/hpf) Absent Urine Bacteria 1+ Abnormal Absent Inr/Protime 12/24/2018 [facility] Inr 1.15 High 0.82-1.09 8 Laboratory test 12/24/2018 [facility] Partial Thrombo 40.3 seconds High 26.0- 38.0 finding Time PTT Lactic Acid 1.3 mmol/L Normal 0.5-2.0 9 Comp Metabolic Panel 12/24/2018 [facility] Sodium 134 mmol/L Low 135-145 Potassium 3.9 mmol/L Normal 3.5-5.0 Chloride 104 mmol/L Normal 101-111 Co2 Carbon Dioxide 24 mmol/L Normal 22-32 Anion Gap 6 mmol/L Normal 2-11 Glucose 144 mg/dL High 70-100 Blood Urea Nitrogen 10 mg/dL Normal 6-24 Creatinine 0.91 mg/dL Normal 0.67-1.17 BUN/Creatinine Ratio 11.0 Normal 8-20 Calcium 9.0 mg/dL Normal 8.6-10.3 Total Protein 7.4 g/dL Normal 6.4-8.9 Albumin 3.8 g/dL Normal 3.2-5.2 Globulin 3.6 g/dL Normal 2-4 Albumin/Globulin Ratio 1.1 Normal 1-3 Total Bilirubin 0.40 mg/dL Normal 0.2-1.0 Alkaline Phosphatase 86 U/L Normal 34-104 Alt 40 U/L Normal 7-52 Ast 29 U/L Normal 13-39 Egfr Non- 97.2 >60 Egfr 117.6 >60 10 Laboratory test finding 12/24/2018 [facility] C Reactive Protein 187.31 mg/L High <8.01 Troponin I 0.01 ng/mL <0.04 11 Lyme Screen W/ Reflex To WB Positive Abnormal Negative 12 Urine Culture And 12/24/2018 [facility] Urine Culture SEE RESULT 13 Sensitivities BELOW Laboratory test 12/24/2018 [facility] Blood Culture SEE RESULT 14 finding BELOW Lyme Disease AB 12/24/2018 [facility] IgG Immunoblot Positive Abnormal Negative Immunoblot WB IgG detected against See Comment kDa 15 IgM Immunoblot Negative Negative IgM detected against p41 kDa Lyme Disease Interpretation See Comment 16 1 [place] Severe Sepsis and Septic Shock Management Bundle Measure requires all lactic acids initially measuring >2.0 mmol/L be repeated. 2 Comment: Tube # 2 3 Comment: Tube # 2 4 Comment: Tube # 2 5 SEE RESULT BELOW Name: TARA MUNSON : [address]: Leanna Westbrook MD Acct: [id number] Unit: [id number] AGE: 33 Location: [facility] [id number] Re12/25/18 Dis: 12/25/18 SEX: M Status: DIS IN SPEC: [id number] YISSEL: 12/24/[address]: Francisco Peterson MD REQ: [id number] RECD: 12/24/18 STATUS: CHRIS WELCH DR: Shamar Nevarez MD _ SOURCE: CSF SPDESC: ORDERED: CSF Cult/GS COMMENTS: Comment: Tube # 3 Procedure Result Reported Site CSF Gram Stain Final 12/24/18- 2230 ML 1+ Nucleated Cells No Neutrophils Observed No Organisms Seen Preparation By Cytospin Smear CSF Culture Final 12/28/18- 1037 ML No Growth Day 4 * ML - Main Lab . END OF REPORT DEPARTMENT OF PATHOLOGY, [address] [place] [address] Parker Rivas M.D. Director [facility] # [id number] 6 No evidence of an acute inflammatory response. No evidence of malignancy. Reviewed by Rosalva Denny MD 7 *Ascorbic acid is present which may interfere with detection of blood. 8 Standard intensity warfarin therapeutic range: 2.0-3.0 High intensity warfarin therapeutic range: 2.5-3.5 9 [facility] Severe Sepsis and Septic Shock Management Bundle Measure requires all lactic acids initially measuring >2.0 mmol/L be repeated. 10 Because ethnic data is not always readily available, this report includes an eGFR for both -Americans and non- Americans. The National Kidney Disease Education Program (NKDEP) does not endorse the use of the MDRD equation for patients that are not between the ages of 18 and 70, are , have extremes of body size, muscle mass, or nutritional status, or are non- or non-. According to the National Kidney Foundation, irrespective of diagnosis, the stage of the disease is based on the level of kidney function: Stage Description GFR(mL/min/1.73 m(2)) 1 Kidney damage with normal or decreased GFR 90 2 Kidney damage with mild decrease in GFR 60-89 3 Moderate decrease in GFR 30-59 4 Severe decrease in GFR 15-29 5 Kidney failure <15 (or dialysis) 11 Troponin-I testing on Plasma Separator Tubes (PST) has a known false positive rate of 0.20-0.40%. All positive troponins reflex immediately to secondary confirmatory testing. Using the Pony Zero DxI 800 Access Immunoassay systems, the 99th percentile upper reference limit was demonstrated to be < 0.03 ng/mL. 12 Sent to reference laboratory for confirmatory testing. 13 SEE RESULT BELOW Name: TARA MUNSON : [address]: Leanna Westbrook MD Acct: [id number] Unit: [id number] AGE: 33 Location: [place] [address] Re12/25/18 SEX: M Status: ADM IN SPEC: [id number] YISSEL: 12/24/18 [facility] DR: Francisco Peterson MD REQ: [id number] RECD: 12/24/18 STATUS: CHRIS WELCH DR: Shamar Nevarez MD _ SOURCE: URINE SPDESC: ORDERED: Urine Culture Procedure Result Reported Site Urine Culture Final 12/25/18- 1614 ML No Growth (<1,000 CFU/mL) * ML - Main Lab . END OF REPORT DEPARTMENT OF PATHOLOGY, [address] [place] [address] Parker Rivas M.D. Director [facility] # [id number] 14 SEE RESULT BELOW Name: TARA MUNSON : [address]: Leanna Westbrook MD Acct: [id number] Unit: [id number] AGE: 33 Location: [place] [address] Re12/25/18 Dis: 12/25/18 SEX: M Status: DIS IN SPEC: [id number] YISSEL: 12/24/[address] [facility] [address]: Francisco Peterson MD REQ: [id number] RECD: 12/24/18 STATUS: CHRIS WELCH DR: Shamar Nevarez MD _ S[facility] ORDERED: Blood Cult Procedure Result Reported Site Aerobic Culture Bottle Final 12/29/181933 ML No Growth Day 5 Anaerobic Culture Bottle Final 12/29/181933 ML No Growth Day 5 * ML - Main Lab . END OF REPORT DEPARTMENT OF PATHOLOGY, [address] [place] [address] Parker Rivas M.D. 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 ADDITIONAL INFORMATION Per CDC criteria, the Lyme IgG Immunoblot is interpreted as positive if IgG-class antibodies are detected to >=5 B. burgdorferi proteins, and the Lyme IgM Immunoblot is interpreted as positive if IgM-class antibodies are detected to >=2 B. burgdorferi proteins. Immunoblot patterns not meeting these criteria should not be interpreted as positive. Epitopes from certain B. burgdorferi proteins (e.g., p41) are conserved across other bacteria, which may lead to the detection of IgM- and/or IgG-class antibodies on the Lyme disease immunoblots in patients without Lyme disease. Immunoblot should only be ordered on specimens that are positive or equivocal by a FDA-licensed Lyme disease antibody screening test (e.g., EIA). Results of the Lyme IgM immunoblot should not be considered in patients with >= 30 days of symptoms. Test Performed by: [facility] [address] [place] [address] Procedures Description No Information Available Medical Devices Description No Information Available Encounters Description No Information Available Assessments Date Code Description Provider 03/30/2019 F33.1 Major depressive disorder, recurrent, Sarah Davidson NP moderate 03/30/2019 G40.309 Generalized idiopathic epilepsy and Sarah Davidson NP epileptic syndromes, not intractable, without status epilepticus 03/30/2019 Z23 Encounter for immunization Sarah Davidson NP 01/05/2019 A69.20 Lyme disease, unspecified Valeria Ansari NP Plan of Treatment 03/30/2019 - Sarah Davidson NPF33.1 Major depressive disorder, recurrent, moderateComments:I would make no medication changes at this time.G40.309 Generalized idiopathic epilepsy and epileptic syndromes, not intractable, without status epilepticusComments:Continue to follow-up with your [id number] Encounter for immunizationAllComments:1. Patient has been queried about patient's goals/preferences and functional/lifestyle goals at relevant visits. If relevant, describe: Has been discussed, noted above2. Treatment goals as explainedto the patient: see above3. Are there barriers to meeting treatment goals? Yes If Yes, please describe: Barriers include possible insurance limits, disease process, and difficulty with lifestyle changes4. Self-Management goals as described to the patient: Yes, see above As always, we strongly encourage a healthy diet and making physical activity a part of your every day life. If you have questions about how or where to start, please contact the office. Functional Status Description No Information Available Mental Status Description No Information Available Referrals Description No Information Available
== END 2019-05-16 03:48 | disposition home or self-care (01) ==
LOC: ED 01:48
DX: F10.929 Alcohol use, unspecified with intoxication, unspecified (principal); G40.909 Epilepsy, unspecified, not intractable, without status epilepticus; F32.9 Major depressive disorder, single episode, unspecified; F17.200 Nicotine dependence, unspecified, uncomplicated; Z88.8 Allergy status to other drugs, medicaments and biological substances
CPT/HCPCS: 36415; 80053; 80320; 85025; 96361; 96374; 99283; G0480; J2405

== ENCOUNTER 2019-06-27 22:49 | Inpatient (IN) | payer OTHER ==
[2019-06-27 23:40] LABS: ABS Lymphocytes 1.9 10^3/ul (1.0-4.8); ABS Monocytes 0.7 10^3/ul (0-0.8); ABS Neutrophils 5.6 10^3/ul (1.5-7.7); Eosinophil % 0.3 %; Hematocrit 43 % (42-52); Hemoglobin 14.7 g/dL (14.0-18.0); Lymphocyte % 22.5 %; Mean Corpuscular HGB Conc 34 g/dL (31-36); Mean Corpuscular Hemoglobin 31 pg (27-31); Mean Corpuscular Volume 89 fL (80-94); Mean Platelet Volume 7.6 fL (7.4-10.4); Nucleated Red Blood Cells % 0.1; Platelet Count 368 10^3/uL (150-450); Red Blood Count 4.82 10^6 /uL (4.18-5.48); Red Cell Distribution Width 14 % (10-15); White Blood Count 8.2 10^3/uL (3.5-10.8)
--- NOTE | 2019-06-27 23:49 | ED ---
Psychiatric Complaint - HPI Summary HPI Summary: The patient is a 34 y/o male presenting to [facility] with a chief complaint of suicidal and homicidal ideations today. He states that he "doesnt feel well and should not be alone tonight with his thoughts." He reports SI and HI. He notes he called the suicide hotline earlier today and was advised to come here if his symptoms continued. He is medication compliant without any recent dose changes. He has not taken his medications tonight. He is not in any pain. PMHx: depression, seizures. FHx: biological father with cocaine and alcohol abuse. Former smoker, occasional EtOH (one glass champagne tonight), no substance use. Medications reviewed. Allergies noted. - History Of Current Complaint Chief Complaint: EDSuicidal Time Seen by Provider: 06/27/19 23:06 Hx Obtained From: Patient Onset/Duration: Sudden Onset, Lasting Hours, Still Present Timing: Constant Severity Initially: Mild Severity Currently: Moderate Character: Depressed Aggravating Factor(s): Nothing Alleviating Factor(s): Nothing Related History: Positive For: Prior Psychiatric Issues - depression Has Suicidal: Reports: Thoughts Has Homicidal: Reports: Thoughts - Allergies/Home Medications Allergies/Adverse Reactions: Allergies Allergy/AdvReac Type Severity Reaction Status Date / Time divalproex sodium Allergy Unknown Verified 06/27/19 22:52 [From Depakote] Reaction Details PMH/Surg Hx/FS Hx/Imm Hx Endocrine/Hematology History: Denies: Hx Anticoagulant Therapy, Hx Blood Disorders, Hx Blood Transfusions, Hx Bone Marrow Disease, Hx Diabetes, Hx Systemic Lupus Erythematosus, Hx Sickle Cell Disease, Hx Thyroid Disease, Hx Anemia, Hx Unexplained Bleeding, Other Endocrine/Hematological Disorders Cardiovascular History: Denies: Hx Aneurysm, Hx Angina, Hx Angioplasty, Hx Auto Implanted Cardiovert Defib, Hx Cardiac Arrest, Hx Cardiomegaly, Hx Congenital Heart Disease, Hx Congestive Heart Failure, Hx Coronary Artery Disease, Hx Deep Vein Thrombosis, Hx Embolism, Hx Hypercholesterolemia, Hx Hypotension, Hx Hypertension, Hx Pacemaker/ICD, Hx Peripheral Vascular Disease, Hx Rheumatic Fever, Hx Syncope, Hx Valvular Heart Disease, Other Cardiovascular Problems/Disorders Respiratory History: Denies: Hx Asthma, Hx Bronchopulmonary Dysplasia, Hx Chronic Bronchitis, Hx Chronic Obstructive Pulmonary Disease (COPD), Hx Cystic Fibrosis, Hx Lung Cancer , Hx Pleural Effusion, Hx Pneumonia, Hx Pulmonary Edema, Hx Pulmonary Embolism, Hx Seasonal Allergies, Hx Sleep Apnea, Other Respiratory Problems/Disorders GI History: Denies: Hx Cirrhosis, Hx Crohn's Disease, Hx Diverticulosis, Hx Gall Bladder Disease, Hx Gastroesophageal Reflux Disease, Hx Gastrointestinal Bleed, Hx Hiatal Hernia, Hx Irritable Bowel, Hx Jaundice, Hx Obstructive Bowel, Hx Ileostomy, Hx Pyloric Stenosis, Hx Ulcer, Other GI Disorders History: Denies: Hx Acute Renal Failure, Hx Benign Prostatic Hyperplasia, Hx Chronic Renal Failure, Hx Dialysis, Hx Kidney Infection, Hx Kidney Stones, Other Problems/Disorders Musculoskeletal History: Denies: Hx Arthritis, Hx Back Problems, Hx Bursitis, Hx Congenital Bone Abnormalities, Hx Fibromyalgia, Hx Gout, Hx Orthopedic Injury, Hx Osteoporosis, Hx Scoliosis, Hx Tendonitis, Other Musculoskeletal History Sensory History: Denies: Hx Cataracts, Hx Contacts or Glasses, Hx Eye Injury, Hx Eye Prosthesis, Hx Glaucoma, Hx Legally Blind, Hx Macular Degeneration, Hx Vision Problem, Hx Deafness, Hx Hearing Aid, Hx Hearing Problem, Other Sensory Impairments Opthamlomology History: Denies: Hx Cataracts, Hx Contacts or Glasses, Hx Eye Injury, Hx Eye Prosthesis, Hx Glaucoma, Hx Legally Blind, Hx Macular Degeneration, Hx Vision Problem, Other Sensory Impairments Neurological History: Reports: Hx Seizures Denies: Hx Dementia, Hx Developmental Delay, Hx Headaches, Hx Migraine, Hx Nerve Disease, Hx Spinal Cord Injury, Hx Transient Ischemic Attacks (TIA), Other Neuro Impairments/Disorders Psychiatric History: Reports: Hx Depression Denies: Hx Anxiety, Hx Attention Deficit Hyperactivity Disorder, Hx Autism, Hx Eating Disorder, Hx Oppositional [place] Disorder, Hx Panic Disorder, Hx Post Traumatic Stress Disorder, Hx Inpatient Treatment, Hx Community Mental Health Tx, Hx Schizophrenia, Hx Bipolar Disorder, Hx Suicide Attempt, Hx of Violent Episodes Against Others, Other Psychiatric Issues/Disorders - Cancer History Hx Hematologic Symptoms: No Hx Chemotherapy: No Hx Radiation Therapy: No Hx Palliative Cancer Treatment: No - Surgical History Surgical History: None Surgery Procedure, Year, and Place: none Hx Anesthesia Reactions: No - Immunization History Date of Tetanus Vaccine: unk Date of Influenza Vaccine: utd Infectious Disease History: No Infectious Disease History: Denies: Hx Clostridium Difficile, Hx Hepatitis, Hx Human Immunodeficiency Virus (HIV), Hx of Known/Suspected MRSA, Hx Shingles, Hx Tuberculosis, History Other Infectious Disease, Traveled Outside the [place] in Last 30 Days - Family History Known Family History: Positive: Other - breast CA Family History: Father is alive, age 64, has HIV, but that is his adopted father. His biological father at an early age of alcohol and cocaine abuse and his mother is alive with breast cancer. He has a half sister, alive and well. - Social History Alcohol Use: Occasionally Alcohol Amount: Had a drink tonight Hx Substance Use: Yes Substance Use Type: Reports: None Hx Tobacco Use: Yes Smoking Status (MU): Former Smoker Have You Smoked in the Last Year: Yes - Additional Comments History Additional Comments: depression, epilepsy Review of Systems - ROS Summary Review of Systems Summary: Home Medications Medication Instructions Recorded Confirmed Type FLUoxetine CAP* [Prozac CAP*] 40 mg PO DAILY 12/24/18 05/16/19 History Zonisamide(NF) [Zonegran(NF)] 200 mg PO QAM 12/24/18 05/16/19 History Zonisamide(NF) [Zonegran(NF)] 300 mg PO QPM 12/24/18 05/16/19 History lamoTRIgine [Lamotrigine ER] 300 mg PO BID 12/24/18 05/16/19 History Acetaminophen TAB* [Tylenol TAB*] 650 mg PO Q4H tab 12/25/18 05/16/19 Rx Negative: Fever Positive: Depressed, Other - SI, HI All Other Systems Reviewed And Are Negative: Yes Physical Exam - Summary Physical Exam Summary: General: Well-developed, Well-nourished male. Unkempt. No acute distress. HEENT: Normocephalic, Atraumatic. Eyes: Conjuctiva normal, PERRL. Oropharynx: Clear, mucous membranes moist, (-) exudates. Neck: Soft, FROM, (-) lymphadenopathy, (-) thyromegaly, (-) JVD. Cardiovascular: Normal sinus rhythm, (-) murmur. Lungs: Clear to auscultation bilaterally (-) wheezes, (-) rales, (-) rhonchi. Abdomen: Soft, non-tender, non-distended, (-) organomegaly, normal bowel sounds. Back: (-) CVA tenderness Extremities: No edema. Skin: Warm, dry, (-) rash. Neuro: Alert and oriented x3, moves all extremities equally. No ataxia. No gait disturbance. No sensory deficit. No amnesia. Psychiatric: Odd affect. Triage Information Reviewed: Yes Vital Signs On Initial Exam: Initial Vitals Temp Pulse Resp BP Pulse Ox 98.6 F 80 15 138/86 98 06/27/19 22:50 06/27/19 22:50 06/27/19 22:50 06/27/19 22:50 06/27/19 22:50 Vital Signs Reviewed: Yes Procedures - Sedation Patient Received Moderate/Deep Sedation with Procedure: No Diagnostics - Vital Signs Vital Signs Temp Pulse Resp BP Pulse Ox 06/27/19 22:50 98.6 F 80 15 138/86 98 - Laboratory Lab Results: Lab Results 06/27/19 Range/Units 23:30 WBC 8.2 (3.5-10.8) 10^3/uL RBC 4.82 (4.18-5.48) 10^6 /uL Hgb 14.7 (14.0-18.0) g/dL Hct 43 (42-52) % MCV 89 (80-94) fL MCH 31 (27-31) pg MCHC 34 (31-36) g/dL RDW 14 (10-15) % Plt Count 368 (150-450) 10^3/uL MPV 7.6 (7.4-10.4) fL Neut % (Auto) 67.9 % Lymph % (Auto) 22.5 % Gilliam % (Auto) 8.7 % Eos % (Auto) 0.3 % Baso % (Auto) 0.6 % Absolute Neuts (auto) 5.6 (1.5-7.7) 10^3/ul Absolute Lymphs (auto) 1.9 (1.0-4.8) 10^3/ul Absolute Monos (auto) 0.7 (0-0.8) 10^3/ul Absolute Eos (auto) 0.0 (0-0.6) 10^3/ul Absolute Basos (auto) 0.0 (0-0.2) 10^3/ul Absolute Nucleated RBC 0.0 10^3/ul Nucleated RBC % 0.1 Result Diagrams: 06/27/19 23:30 06/27/19 23:30 Lab Statement: Any lab studies that have been ordered have been reviewed, and results considered in the medical decision making process. Re-Evaluation - Re-Evaluation First Eval Re-Evaluation Time: 23:45 Comment: Patient is medically clear for MHE. Course/Dx - Course Course Of Treatment: 34-year-old male with suicidal ideation. Patient concerned about being alone with his thoughts tonight. No significant other physical findings. Workup essentially within normal limits. Patient referred for mental health evaluation. He will be admitted to mental health. - Differential Dx/Clinical Impression Provider Diagnosis: Depressive disorder - Physician Notifications Discussed Care Of Patient With: Jesse Galindo - psychiatry Time Discussed With Above Provider: 05:50 Instructed by Provider To: Other - Dr. Galindo and the mental health staff have evaluated the patient, and they agree with admission as being appropriate treatment for the patient. Discharge ED - Sign-Out/Discharge Documenting (check all that apply): Patient Departure - Patient admitted to [facility] by Dr. Galindo. - Discharge Plan Condition: Stable Disposition: [facility]YCHIATRIC FACILITY[place] [place] - Billing Disposition and Condition Condition: STABLE Disposition: Psychiatric Facility [facility] [place] - Attestation Statements Document Initiated by Allyibe: Yes Documenting Scribe: Willow Ayers Provider For Whom Artie is Documenting (Include Credential): Dr. Angie Crook MD Scribe Attestation: Willow Daniels scribed for Dr. Angie Crook MD on 07/01/19 at 2209. Scribe Documentation Reviewed: Yes Provider Attestation: The documentation as recorded by the Willow flood accurately reflects the service I personally performed and the decisions made by me, Dr. Angie Crook MD Status of Scribe Document: Viewed
[2019-06-27 23:53] LABS: Urine Appearance Cloudy; Urine Bilirubin Negative (Negative); Urine Blood Negative (Negative); Urine Color Amber; Urine Glucose Negative (Negative); Urine Ketones 1+ (Negative); Urine Nitrite Negative (Negative); Urine Protein 1+(30 mg/dL) (Negative); Urine Specific Gravity 1.024 (1.010-1.030); Urine Urobilinogen Negative (Negative)
[2019-06-27 23:54] LABS: Urine Bacteria Absent (Absent); Urine Red Blood Cell Trace(0-2/hpf) (Absent); Urine White Blood Cell Trace(0-5/hpf) (Absent)
[2019-06-27 23:58] LABS: ALT 23 U/L (7-52); AST 22 U/L (13-39); Albumin 5.2 g/dL (3.2-5.2); Albumin/Globulin Ratio 1.9 (1-3); Alkaline Phosphatase 73 U/L (34-104); Anion Gap 9 mmol/L (2-11); Blood Urea Nitrogen 12 mg/dL (6-24); CO2 Carbon Dioxide 24 mmol/L (22-32); Calcium 10.1 mg/dL (8.6-10.3); Chloride 104 mmol/L (101-111); EGFR African American 94.9 (>60); EGFR Non-African American 78.4 (>60); Globulin 2.7 g/dL (2-4); Glucose 97 mg/dL (70-100); Potassium 3.6 mmol/L (3.5-5.0); Sodium 137 mmol/L (135-145); Total Protein 7.9 g/dL (6.4-8.9)
[2019-06-27 23:59] LABS: Acetaminophen < 15 mcg/mL; Alcohol < 10 mg/dL (<10); Salicylate < 2.50 mg/dL (<30)
[2019-06-28 00:10] LABS: Urine Benzodiazepine Screen None Detected (None Detect); Urine Opiates Screen None Detected (None Detect)
[2019-06-28 00:13] LABS: TSH (Thyroid Stimulating Horm) 1.32 mcIU/mL (0.34-5.60)
[2019-06-28] MEDS ORDERED: lamoTRIgine TAB(*) 25 MG PO ONE (00:18)
[2019-06-28] MEDS ORDERED: FLUoxetine CAP* 20 MG PO ONE (00:20)
[2019-06-28] MEDS ORDERED: lamoTRIgine TAB(*) 100 MG PO ONE (01:00)
[2019-06-28] MEDS ORDERED: Acetaminophen TAB* 325 MG PO PRN (10:02)
[2019-06-28] MEDS ORDERED: Al Hydrox/Mg Hydrox/Simet LIQ* 30 ML UDC PO PRN (10:02)
[2019-06-28] MEDS ORDERED: hydrOXYzine HCL TAB* 50 MG PO PRN (10:04)
--- NOTE | 2019-06-28 10:06 | HP ---
H&P (Free Text) History and Physical: Justification for admission: Immediate Safety. CC " I am sad" The patient was brought to [facility] by himself after calling the suicide hotline. He reported being sad and depressed after his boyfriend broke up with him and his step father is having health problems , and he is having problems at work. He reported feeling suicidal upon admission and has been sad lately. He reported isolating himself from others. He felt guilty about being sad and said " I feel like a bummer to everyone." Patient stated that he told evaluators that he had plan to cut his wrist with a box knife from the hardware store with the motive of getting attention and being heard. He felt like no one was listening to him or paying attention to him. He denied access to firearms or stockpiles of medications. He reported poor sleep and appetite. The patient denied homicidal ideation intent or plan. The patient denied auditory and/ or visual hallucinations. MDD Reported feeling depressed and having crying spells , feeling empty inside, feelings of hopelessness , and worthlessness. Reported interruption of sleep , and feeling tired throughout the day. He reported loss of energy and lack of motivation to complete tasks. Anxiety Denied having symptoms of anxiety such as having times where heart feels that it is beating out of chest , sweaty palms, or shallow breathing. Denied having uncomfortable or intrusive thoughts. Denied feeling restless, high strung, or worrying too much most of the time. Bipolar Denied symptoms of janie such as having many ideas at once. Denied increased talkativeness where no one can interrupt. Denied feeling irritable most of the time while having an persistent abundance of energy most of the day without the use of energy drinks, stimulants, or recreational drug use. Denied an increase in intensity in goal directed activities. Denied having the decreased need to sleep for days , having prolonged elevated mood , or feeling on top of the world. Denied impulsive risky sexual encounters. Denied spending money recklessly , going on spending sprees wiping out savings. Denied impulsively traveling out of town or country, having super larsen, and unrealistic wealth or fame. Psychosis Does not endorse hearing things that other people do not hear or seeing things other people do not see. Denied feeling that TV is making references. Denied feeling that people are spying , following , or reading their thoughts. Phobias: Patient denied having excessive fear of a particular thing or situation. Eating disorders: Patient denied having excessive eating habits or feelings of guilt after eating. Denied repeated episodes of self induced vomiting after eating. PTSD Denied flashbacks, nightmares and avoidance of a prior traumatic event. PAST PSYCHIATRIC HISTORY: Prior Diagnosis : Major Depressive Disorder History of past Psychiatric Hospitalizations: No prior psychiatric admission. History of past suicide/homicide attempts : Denied past suicide attempts or self injurious behaviors. No history of violence. Outpatient follow-up: None at this time Medications: Past trials of medications include Prozac 40mg daily For seizure disorder --> Lamotrigine 300mg BID Zonegran 200mg QAM and 300mg qhs. Guardianship: None. FAMILY HISTORY: - Suicide: Denied family history of suicide. - Mental illness: Grandmother Bipolar Disorder - Substance abuse: Father had alcohol abuse SUBSTANCE ABUSE HISTORY: - EtOH: Uses once a month and had a prior history of severe alcohol use and stopped abusing alcohol at age 28. No associated legal issues, blackouts, seizures, DTs or past hospitalizations due to alcohol. - Tobacco: Denied - Cannabis: Denied - Heroin: Denied - Cocaine: Denied - Substance abuse treatment: past substance abuse treatment at [facility]. SOCIAL HISTORY: - Denied a history of childhood physical and or sexual abuse Born in [place] and raised by his step father and mother. Never met his biological father - Education: Associates Degree. No history of special education. 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 - Legal history: Denied - service history: Denied PAST MEDICAL HISTORY: Seizure Disorder Grand Mal last seizure 1 year ago. - Allergies: Denied drug or other allergies. Physical Exam: Please see ED note Mental Status Exam on Admission APPEARANCE : 34 year old Male who appears stated age. Patient is not malodourous, and appears to have fair hygiene and grooming. BEHAVIOR: Cooperative , calm EYE CONTACT: Fair PSYCHOMOTOR ACTIVITY: No psychomotor agitation or retardation. MOVEMENTS: No abnormal movements observed. SPEECH : Normal rate, rhythm, volume and tone. MOOD : "Sad " AFFECT : Type is depressed Range is restricted Mood Congruent THOUGHT PROCESS: Formulated and organized in a logical, linear goal directed manner. No flight of ideas, neologism (made up words) , perseveration , tangential , loose associations , or circumstantiality. THOUGHT CONTENT: no delusions, obsessions, phobias or preoccupations. PERCEPTION: No current auditory or visual hallucinations. Doesnt appear to be responding to internal cues. No evidence of depersonalization , de-realization, or illusions SUICIDALITY suicidal ideation HOMICIDALITY Denied homicidal ideation, intent or plan. Insight/judgment: Poor insight and judgment ORIENTATION: Oriented to self, location, and time. Diagnosis on Admission: Major Depressive Disorder, severe. Assessment: 34 year old with history of depression came to the hospital and was admitted to the BSU after expressing suicidal. Plan #Admit to [facility], Q15 minute observation. Start regular diet. Encourage participation in activities on the milieu. #Patient evaluated in ED and was determined by the emergency room Physician to be medically fit for admission to the BSU. # Justification for Admission: For immediate safety per outlined in the [place] Mental Hygiene Code. # The patient requires psychiatric inpatient admission at this time to assure safety, receive treatment and work toward stabilization. # Labs ordered: CBC, CMP, UDS, TSH, HBA1c, TSH, Toxicology screen, Urine analysis, and lipid profile. # Obtain collateral information once release is signed. # Collaboration with Social Work # Patient requesting follow up therapy resources # Increase prozac to 60mg daily # Continue home seizure medications Lamotrigine 300mg BID Zonegran 200mg QAM and 300mg qhs. # Seizure precautions Substance Abuse resources offered. #Goals before discharge include: To eliminate/ reduce suicidal ideation Tentative Discharge: Pending psychiatric stabilization The risks, benefits, and alternative treatment options were discussed as well as the risks of refusing treatment. After this discussion and an acknowledgement of this understanding was made. A risk/ benefit assessment of treatment was considered and discussed with the patient. When comparing the risks of treatment with the dangers of not receiving treatment, the benefits of treatment outweigh the treatment risks at this time. Risks of allergy, suicidal ideation, behavioral changes, dystonia, rashes, electrolyte imbalances, movement disorders, cardiac conduction changes, serotonin syndrome, metabolic risks were among some of the risks discussed. Acetaminophen (Tylenol Tab*) 650 mg PO Q4H PRN PRN Reason: for pain; or Temp >101 F Al Hydrox/Mg Hydrox/Simethicone (Maalox Plus*) 30 ml PO Q4H PRN PRN Reason: INDIGESTION Fluoxetine HCl (Prozac Cap*) 40 mg PO DAILY [facility] Hydroxyzine HCl (Atarax Tab*) 50 mg PO Q6H PRN PRN Reason: anxiety Lamotrigine (Lamictal Xr (Nf)) 300 mg PO BID [facility] Multivitamins (Theragran Tab*) 1 tab PO DAILY [facility] Zonisamide (Zonegran(Nf)) 200 mg PO QAM [facility] Last Admin: 06/28/19 12:55 Dose: 200 mg Zonisamide (Zonegran(Nf)) 300 mg PO BEDTIME [facility] Sodium 137 mmol/L (135-145) 06/27/19 23:30 Potassium 3.6 mmol/L (3.5-5.0) 06/27/19 23:30 BUN 12 mg/dL (6-24) 06/27/19 23:30 Creatinine 1.09 mg/dL (0.67-1.17) 06/27/19 23:30 Calcium 10.1 mg/dL (8.6-10.3) 06/27/19 23:30 AST 22 U/L (13-39) 06/27/19 23:30 ALT 23 U/L (7-52) 06/27/19 23:30 Triglycerides 69 mg/dL 06/29/19 07:30 Cholesterol 122 mg/dL 06/29/19 07:30 LDL Cholesterol 68 mg/dL 06/29/19 07:30
[2019-06-28] MEDS: ZONISAMIDE 100 MG PO SCH (12:55)
[2019-06-28] MEDS ORDERED: ZONISAMIDE 100 MG PO SCH (18:00)
[2019-06-28] MEDS: LAMOTRIGINE 300 MG PO SCH (21:06)
[2019-06-28] MEDS: Zonisamide(NF) 100 MG CAP PO SCH (21:07)
[2019-06-29 08:24] LABS: HDL Cholesterol 39.9 mg/dL
--- NOTE | 2019-06-29 08:41 | PN ---
Subjective - Subjective Date of Service: 06/29/19 Service Type: 35685 Hosp care 35 min high complexity Subjective: Nursing Report: Patient was visible on unit, no behavioral incidents. Slept overnight. He is attending group activities. CC: "I feel better" Patient was seen and evaluated in the common room. Patient is looking forward to going back to work and school. He reported having adequate appetite and sleep. The patient reports attending and participating in day groups. Per nursing no behavioral issues or overnight events reported. Patient reported that he is tolerating medications without side effects. Objective - General Observations Appearance: Neat Appears Stated Age: Yes Stature: WNL Posture: WNL Eye Contact: Average - Interaction Observations Attitude Towards Examiner: Cooperative Stated Mood: Euthymic Affect: Restricted Speech Pattern/Tone: Clear Thought Process: Coherent Perception: WNL Thought Content: WNL Hallucination Type: None Delusion Type: None - Cognitive Function Orientation: A&O x 4 Level of Consciousness: Awake - Medication Compliance Cooperative with Inpatient Medication Regimen: Yes - Group Participation Participates in Group Activities: Yes Assessment - Assessment Merits Inpatient Hospitalization: For Immediate Safety Clinical Impression: 34 year old with history of depression came to the hospital and was admitted to the [facility] after expressing suicidal. Plan - Plan Treatment Plan: Name: TARA GREENBERG Birthdate: 1985 [id number] #Q30 minute observation with staff pass. # The patient requires psychiatric inpatient admission at this time to assure safety, receive treatment and work toward stabilization. # Obtain collateral information obtained from mother during family meeting. Mother confirmed no access to firearms or stockpiles of medications. # Collaboration with Social Work # [facility] #Continue prozac to 60mg daily # Continue home seizure medications Lamotrigine 300mg BID Zonegran 200mg QAM and 300mg qhs. # Seizure precautions #Goals before discharge include: To eliminate/ reduce suicidal ideation Tentative Discharge: Tomorrow 06/30/19 The risks, benefits, and alternative treatment options were discussed as well as the risks of refusing treatment. After this discussion and an acknowledgement of this understanding was made. A risk/ benefit assessment of treatment was considered and discussed with the patient. When comparing the risks of treatment with the dangers of not receiving treatment, the benefits of treatment outweigh the treatment risks at this time. Risks of allergy, suicidal ideation, behavioral changes, dystonia, rashes, electrolyte imbalances, movement disorders, cardiac conduction changes, serotonin syndrome, metabolic risks were among some of the risks discussed. Continued Medication Management: Continue Outpt Medication Medications: Current Medications Acetaminophen (Tylenol Tab*) 650 mg PO Q4H PRN PRN Reason: for pain; or Temp >101 F Al Hydrox/Mg Hydrox/Simethicone (Maalox Plus*) 30 ml PO Q4H PRN PRN Reason: INDIGESTION Fluoxetine HCl (Prozac Cap*) 60 mg PO DAILY [facility] Hydroxyzine HCl (Atarax Tab*) 50 mg PO Q6H PRN PRN Reason: anxiety Lamotrigine (Lamictal Xr (Nf)) 300 mg PO BID [facility] Last Admin: 06/28/19 21:06 Dose: 300 mg Multivitamins (Theragran Tab*) 1 tab PO DAILY [facility] Zonisamide (Zonegran(Nf)) 200 mg PO QAM [facility] Last Admin: 06/28/19 12:55 Dose: 200 mg Zonisamide (Zonegran(Nf)) 300 mg PO BEDTIME [facility] Last Admin: 06/28/19 21:07 Dose: 300 mg - Discharge Plan Discharge Plan: Inpatient Hospitalization Outpatient Program: [facility]
[2019-06-29] MEDS: Vitamin THERAPEUTIC TAB PO SCH (08:58)
[2019-06-29] MEDS: FLUoxetine CAP* 20 MG PO SCH (08:58)
[2019-06-29] MEDS: ZONISAMIDE 100 MG PO SCH (08:59)
[2019-06-29] MEDS: LAMOTRIGINE 300 MG PO SCH ×2 (09:00→21:03)
[2019-06-29] MEDS ORDERED: FLUoxetine CAP* 20 MG PO SCH (09:00)
--- NOTE | 2019-06-29 11:12 | PN ---
BSU: Group Therapy Note - Service Type Service Type: 34234 Group Psychotherapy - Cognitive Behavioral Group Therapy ( CBT):Patient was attentive and participatory in CBT programming this morning, and remained in good behavioral control. Patient expressed positive insights regarding relevant treatment interventions and goals.
[2019-06-29] MEDS: Zonisamide(NF) 100 MG CAP PO SCH (21:02)
--- NOTE | 2019-06-30 07:52 | DS ---
Subjective - Subjective Service Types: [id number] [facility] Day Mgmt complex over 30 min Discharge Date: 06/30/19 Subjective: CC: " I am better" Patient looks forward to going back to school The patient was seen and evaluated before discharge today. The patient reported having adequate appetite and sleep. The patient reports attending and participating in day groups. Per nursing no behavioral issues or overnight events reported. Patient reported tolerating medications without side effects. Justification for admission: Immediate Safety. CC " I am sad" The patient was brought to [facility] by himself after calling the suicide hotline. He reported being sad and depressed after his boyfriend broke up with him and his step father is having health problems , and he is having problems at work. He reported feeling suicidal upon admission and has been sad lately. He reported isolating himself from others. He felt guilty about being sad and said " I feel like a bummer to everyone." Patient stated that he told evaluators that he had plan to cut his wrist with a box knife from the hardware store with the motive of getting attention and being heard. He felt like no one was listening to him or paying attention to him. He denied access to firearms or stockpiles of medications. He reported poor sleep and appetite. The patient denied homicidal ideation intent or plan. The patient denied auditory and/ or visual hallucinations. MDD Reported feeling depressed and having crying spells , feeling empty inside, feelings of hopelessness , and worthlessness. Reported interruption of sleep , and feeling tired throughout the day. He reported loss of energy and lack of motivation to complete tasks. Anxiety Denied having symptoms of anxiety such as having times where heart feels that it is beating out of chest , sweaty palms, or shallow breathing. Denied having uncomfortable or intrusive thoughts. Denied feeling restless, high strung, or worrying too much most of the time. Bipolar Denied symptoms of janie such as having many ideas at once. Denied increased talkativeness where no one can interrupt. Denied feeling irritable most of the time while having an persistent abundance of energy most of the day without the use of energy drinks, stimulants, or recreational drug use. Denied an increase in intensity in goal directed activities. Denied having the decreased need to sleep for days , having prolonged elevated mood , or feeling on top of the world. Denied impulsive risky sexual encounters. Denied spending money recklessly , going on spending sprees wiping out savings. Denied impulsively traveling out of town or country, having super larsen, and unrealistic wealth or fame. Psychosis Does not endorse hearing things that other people do not hear or seeing things other people do not see. Denied feeling that TV is making references. Denied feeling that people are spying , following , or reading their thoughts. Phobias: Patient denied having excessive fear of a particular thing or situation. Eating disorders: Patient denied having excessive eating habits or feelings of guilt after eating. Denied repeated episodes of self induced vomiting after eating. PTSD Denied flashbacks, nightmares and avoidance of a prior traumatic event. PAST PSYCHIATRIC HISTORY: Prior Diagnosis : Major Depressive Disorder History of past Psychiatric Hospitalizations: No prior psychiatric admission. History of past suicide/homicide attempts : Denied past suicide attempts or self injurious behaviors. No history of violence. Outpatient follow-up: None at this time Medications: Past trials of medications include Prozac 40mg daily For seizure disorder --> Lamotrigine 300mg BID Zonegran 200mg QAM and 300mg qhs. Guardianship: None. FAMILY HISTORY: - Suicide: Denied family history of suicide. - Mental illness: Grandmother Bipolar Disorder - Substance abuse: Father had alcohol abuse SUBSTANCE ABUSE HISTORY: - EtOH: Uses once a month and had a prior history of severe alcohol use and stopped abusing alcohol at age 28. No associated legal issues, blackouts, seizures, DTs or past hospitalizations due to alcohol. - Tobacco: Denied - Cannabis: Denied - Heroin: Denied - Cocaine: Denied - Substance abuse treatment: past substance abuse treatment at [facility]. SOCIAL HISTORY: - Denied a history of childhood physical and or sexual abuse Born in [place] and raised by his step father and mother. Never met his biological father - Education: Associates Degree. No history of special education. 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 - Legal history: Denied - service history: Denied PAST MEDICAL HISTORY: Seizure Disorder Grand Mal last seizure 1 year ago. - Allergies: Denied drug or other allergies. Physical Exam: Please see ED note Mental Status Exam on Admission APPEARANCE : 34 year old Male who appears stated age. Patient is not malodourous, and appears to have fair hygiene and grooming. BEHAVIOR: Cooperative , calm EYE CONTACT: Fair PSYCHOMOTOR ACTIVITY: No psychomotor agitation or retardation. MOVEMENTS: No abnormal movements observed. SPEECH : Normal rate, rhythm, volume and tone. MOOD : "Sad " AFFECT : Type is depressed Range is restricted Mood Congruent THOUGHT PROCESS: Formulated and organized in a logical, linear goal directed manner. No flight of ideas, neologism (made up words) , perseveration , tangential , loose associations , or circumstantiality. THOUGHT CONTENT: no delusions, obsessions, phobias or preoccupations. PERCEPTION: No current auditory or visual hallucinations. Doesnt appear to be responding to internal cues. No evidence of depersonalization , de-realization, or illusions SUICIDALITY suicidal ideation HOMICIDALITY Denied homicidal ideation, intent or plan. Insight/judgment: Poor insight and judgment ORIENTATION: Oriented to self, location, and time. Diagnosis on Admission: Major Depressive Disorder, severe. Diagnosis on Discharge: Major Depressive Disorder, in partial remission. Condition at the time of discharge: At the time of discharge patient showed improvement of sleep and appetite. The patient was not a danger to self or others. The patient denied suicidal ideation, intent or plan. The patient denied homicidal targets, ideation, intent or plan. This patient participated in psychosocial rehabilitation and gained some insight into problems. The patient gained insight into mental illness, triggers, and treatment. The patient took medication as prescribed. The patient denied side effects of medication and objective signs of side effects were not evident. Therapy Resources were offered to the patient. Patient was given a supply of prescriptions at the time of discharge. The patient plans to attend follow up care with the follow up arrangements that were discussed and put in place. Patient was asked to keep appointments as scheduled, take medication as prescribed, have routine follow up care with their primary care physician and refrain from any use of alcohol or drugs. Objective - General Observations Appearance: Neat Appears Stated Age: Yes Stature: WNL Posture: WNL Eye Contact: Average Behavior/Activity: WNL - Interaction Observations Attitude Towards Examiner: Cooperative Stated Mood: Euthymic Affect: Full Speech Pattern/Tone: Appropriate Thought Process: Coherent Perception: WNL Thought Content: WNL Hallucination Type: None Delusion Type: None - Cognitive Function Orientation: A&O x 4 Level of Consciousness: Awake - Medication Compliance Cooperative with Inpatient Medication Regimen: Yes - Group Participation Participates in Group Activities: Yes Treatment Course & Assessment Clinical Course & Impression: Hospital course part A: 34 year old with history of depression came to the hospital and was admitted to the BSU after expressing suicidal. Hospital course part B: Labs ordered included CBC, CMP, UDS, TSH, HBA1c, TSH, Toxicology screen, Urine analysis, and lipid profile. Labs were reviewed and vital signs were monitored during the course of admission. The patient was admitted to the adult behavioral unit and placed on 15 minute check for safety. At a later time the patient was on Q30 minute observation and staff pass privileges. With those limits being extended, patient was safe on all checks and there were no occurrence of behavioral incidents. The patient did well on the unit and went to groups. Interacted with peers had adequate sleep and regular appetite. Tolerated medication changes without side effects. Group therapy and services were offered. The risks, benefits, and alternative treatment options were discussed as well as of the risks of refusing treatment. Treatment associated risks discussed. After this discussion the patient made an acknowledgement of this understanding. Follow up care appointments were put in place. Monitoring for metabolic changes was reviewed and it was emphasized to the patient to be continued to be monitored upon discharge. The patient was informed not to abruptly stop or start new medications before consulting with a medical professional. Improvements shown from the time of admission include: Improved affect, sleep and decrease in anxiety. The patient expressed readiness for discharge home. The patient presents with a broader range of affect, and the absence of depressed mood, delusions, perceptual disturbance. The patient denied suicidal and or homicidal ideation intent or plan. Overall, the patient responded well to inpatient treatment as evidenced by their report of strengthening of coping mechanisms, reduced distress, and more positive outlook on circumstances. Of note there was an improvement of recognizing how emotional state can effect mood and behavior. Safety precautions were put in place which included involving the patient and their family to closely monitor for changes in mental state. In addition, implementing follow up care, screening for the need to remove/securing firearms , weapons and stockpile of medications. Patient/ family instructed to immediately call 911 should any safety concerns arise. The patient was advised of the 24 hour / 7 days a week availability of the emergency room and to call 911 in the event of an emergency such as being suicidal and/ or homicidal. The patient was informed of the contact information for [facility], Suicide Prevention and Crisis Services, National Suicide Prevention Lifeline, [facility], Alcoholics Anonymous, and [facility]. Lamotrigine level was 9.9 and within normal limits. They tolerated medications and was advised about the importance of monitoring medication levels after leaving the hospital. Patient did not have any skin changes. Medications increased was prozac to 60mg daily and home medications were continued that included Lamotrigine 300mg BID Zonegran 200mg QAM and 300mg qhs. Seizure precautions were put in place. Patients seizure activity has been stable for a year and patient is compliant with medication so Neurology was not consulted in his care during the course of hospitalization. The patient has a history of alcohol use disorder that has been in remission for sometime and he did not require alcohol rehabilitation or treatment measures. No seizure activity over the course of hospitalization. Patient advised not to swim, go on ladder or drive and have regular follow up with Neurologist and PCP. Family meeting took place before discharge. The family confirmed that the patient is at their baseline. At this time both the patient and family are eager for discharge and are in agreement with the discharge plan and can receive care in the less restrictive outpatient setting. They were advised on how the days following discharge can be a vulnerable period and to look out for warning signs associated with decompensation and progression of mental illness. They were notified of the resources available in the event these situations arise and confirmed that the patient has no access to firearms or stockpiles of medications. Patient was not assaultive or a behavioral problem during the course of admission. The patient showed good hygiene and was able to carry out activities of daily living. Patient will be discharged to live at home. [facility] appointment at [facility] Patient informed of follow up appointment times. See more details for follow up care in the discharge plan. Risk factors were mitigated by establishing the patients baseline with close contacts and arranging a family meeting. Implemented precautionary safety measures by confirming no stockpiles of medications and no access to firearms, provided mental health treatment, offered substance abuse resources, treatment, and therapy groups, stabilization of depressive features, provided resources to outpatient services, as well as provided a supportive care environment and therapy resources during the course of hospitalization. Safety plan was reviewed with the patient and treatment team. The patient verbalized options they would pursue to ensure their safety in the event they feel unsafe and not doing well. Relationship status change addressed during therapy with the patient. Risk factors: Male, , single, history of a mental health condition, recent relationship status change, recent hospitalization, seizure disorder. Protective factors: At discharge patient did not have suicidal ideation, intent or plan. Patient has not made a prior suicide attempt. Has social/ family support system. No history of service. Currently no feelings of hopelessness, not in an occupation of social isolation, doesnt have multiple medical conditions, no family history of suicide, doesnt have access to firearms. Doesnt have command hallucinations and or psychotic features at this time. No current substance abuse. No current alcohol abuse. Not an anniversary of a loss of a loved one. Currently future orientated. Patient engaged in treatment and compliant with medication. No barriers to seek mental health treatment. Not incarcerated. Not middle or older age. No history of self-injurious behavior, doesnt have cultural belief that supports suicide. No recent loss of someone close that by suicide. Laboratory Tests 06/27/19 06/27/19 06/27/19 23:30 23:30 23:30 WBC 8.2 RBC 4.82 Hgb 14.7 Hct 43 MCV 89 MCH 31 MCHC 34 RDW 14 Plt Count 368 MPV 7.6 Neut % (Auto) 67.9 Lymph % (Auto) 22.5 [place] % (Auto) 8.7 Eos % (Auto) 0.3 Baso % (Auto) 0.6 Absolute Neuts (auto) 5.6 Absolute Lymphs (auto) 1.9 Absolute Monos (auto) 0.7 Absolute Eos (auto) 0.0 Absolute Basos (auto) 0.0 Absolute Nucleated RBC 0.0 Nucleated RBC % 0.1 Sodium 137 Potassium 3.6 Chloride 104 Carbon Dioxide 24 Anion Gap 9 BUN 12 Creatinine 1.09 Est GFR ( Amer) 94.9 Est GFR (Non-Af Amer) 78.4 BUN/Creatinine Ratio 11.0 Glucose 97 Hemoglobin A1c Calcium 10.1 Total Bilirubin 1.10 H AST 22 ALT 23 Alkaline Phosphatase 73 Total Protein 7.9 Albumin 5.2 Globulin 2.7 Albumin/Globulin Ratio 1.9 Triglycerides Cholesterol LDL Cholesterol HDL Cholesterol TSH 1.32 Urine Color Urine Appearance Urine pH Ur Specific [place] Urine Protein Urine Ketones Urine Blood Urine Nitrate Urine Bilirubin Urine Urobilinogen Ur Leukocyte Esterase Urine WBC (Auto) Urine RBC (Auto) Urine Bacteria Urine Glucose Salicylates < 2.50 Urine Opiates Screen Acetaminophen < 15 Ur Barbiturates Screen Lamotrigine 9.9 Ur Phencyclidine Scrn Ur Amphetamines Screen U Benzodiazepines Scrn Urine Cocaine Screen U Cannabinoids Screen Serum Alcohol < 10 06/27/19 06/27/19 06/29/19 23:44 23:44 07:30 WBC RBC Hgb Hct MCV MCH MCHC RDW Plt Count MPV Neut % (Auto) Lymph % (Auto) [place] % (Auto) Eos % (Auto) Baso % (Auto) Absolute Neuts (auto) Absolute Lymphs (auto) Absolute Monos (auto) Absolute Eos (auto) Absolute Basos (auto) Absolute Nucleated RBC Nucleated RBC % Sodium Potassium Chloride Carbon Dioxide Anion Gap BUN Creatinine Est GFR ( Amer) Est GFR (Non-Af Amer) BUN/Creatinine Ratio Glucose Hemoglobin A1c Calcium Total Bilirubin AST ALT Alkaline Phosphatase Total Protein Albumin Globulin Albumin/Globulin Ratio Triglycerides 69 Cholesterol 122 LDL Cholesterol 68 HDL Cholesterol 39.9 TSH Urine Color Sarah Urine Appearance Cloudy Urine pH 5.0 Ur Specific [place] 1.024 Urine Protein 1+(30 mg/dl) A Urine Ketones 1+ A Urine Blood Negative Urine Nitrate Negative Urine Bilirubin Negative Urine Urobilinogen Negative Ur Leukocyte Esterase Negative Urine WBC (Auto) Trace(0-5/hpf) Urine RBC (Auto) Trace(0-2/hpf) Urine Bacteria Absent Urine Glucose Negative Salicylates Urine Opiates Screen None detected Acetaminophen Ur Barbiturates Screen None detected Lamotrigine Ur Phencyclidine Scrn None detected Ur Amphetamines Screen None detected U Benzodiazepines Scrn None detected Urine Cocaine Screen None detected U Cannabinoids Screen Presumptive positive A Serum Alcohol 06/29/19 07:30 WBC RBC Hgb Hct MCV MCH MCHC RDW Plt Count MPV Neut % (Auto) Lymph % (Auto) [place] % (Auto) Eos % (Auto) Baso % (Auto) Absolute Neuts (auto) Absolute Lymphs (auto) Absolute Monos (auto) Absolute Eos (auto) Absolute Basos (auto) Absolute Nucleated RBC Nucleated RBC % Sodium Potassium Chloride Carbon Dioxide Anion Gap BUN Creatinine Est GFR ( Amer) Est GFR (Non-Af Amer) BUN/Creatinine Ratio Glucose Hemoglobin A1c 4.9 Calcium Total Bilirubin AST ALT Alkaline Phosphatase Total Protein Albumin Globulin Albumin/Globulin Ratio Triglycerides Cholesterol LDL Cholesterol HDL Cholesterol TSH Urine Color Urine Appearance Urine pH Ur Specific [place] Urine Protein Urine Ketones Urine Blood Urine Nitrate Urine Bilirubin Urine Urobilinogen Ur Leukocyte Esterase Urine WBC (Auto) Urine RBC (Auto) Urine Bacteria Urine Glucose Salicylates Urine Opiates Screen Acetaminophen Ur Barbiturates Screen Lamotrigine Ur Phencyclidine Scrn Ur Amphetamines Screen U Benzodiazepines Scrn Urine Cocaine Screen U Cannabinoids Screen Serum Alcohol Merits Inpatient Hospitalization: No Clear for Discharge: Adequate Clinical Respons Discharge Planning - Discharge Planning Discharge Plan: Outpatient Follow Up Outpatient Program[facility] Recommendations for Continuing Care: Medication Management Medications: Current Medications Acetaminophen (Tylenol Tab*) 650 mg PO Q4H PRN PRN Reason: for pain; or Temp >101 F Al Hydrox/Mg Hydrox/Simethicone (Maalox Plus*) 30 ml PO Q4H PRN PRN Reason: INDIGESTION Fluoxetine HCl (Prozac Cap*) 60 mg PO DAILY [facility] Last Admin: 06/29/19 08:58 Dose: 60 mg Hydroxyzine HCl (Atarax Tab*) 50 mg PO Q6H PRN PRN Reason: anxiety Lamotrigine (Lamictal Xr (Nf)) 300 mg PO BID [facility] Last Admin: 06/29/19 21:03 Dose: 300 mg Multivitamins (Theragran Tab*) 1 tab PO DAILY [facility] Last Admin: 06/29/19 08:58 Dose: 1 tab Zonisamide (Zonegran(Nf)) 200 mg PO QAM [facility] Last Admin: 06/29/19 08:59 Dose: 200 mg Zonisamide (Zonegran(Nf)) 300 mg PO BEDTIME [facility] Last Admin: 06/29/19 21:02 Dose: 300 mg Discharge Planning: Prescriptions provided for discharge [] Yes [x] No Patient already has enough medication at home Follow up care details as per social work arrangements. Patient response to discharge plan: [x] eager for discharge [] agreeable with discharge plan [] ambivalent about discharge [] disagrees with discharge today
[2019-06-30 09:19] VITALS: BP 133/84
[2019-06-30] MEDS: ZONISAMIDE 100 MG PO SCH (09:40)
[2019-06-30] MEDS: LAMOTRIGINE 300 MG PO SCH (09:41)
[2019-06-30] MEDS: FLUoxetine CAP* 20 MG PO SCH (09:41)
[2019-06-30] MEDS: Vitamin THERAPEUTIC TAB PO SCH (09:42)
== END 2019-06-30 12:15 | disposition home or self-care (01) | DRG 751 ==
LOC: ED 22:49 → BSU 06-28 00:45
PROVIDERS: ADMIT Psychiatry & Neurology Psychiatry; ATTEND Psychiatry & Neurology Psychiatry
PROC: GZHZZZZ Group Psychotherapy (ICD-10-PCS; principal; 2019-06-29)
DX: F32.2 Major depressive disorder, single episode, severe without psychotic features (principal); R45.851 Suicidal ideations; G40.409 Other generalized epilepsy and epileptic syndromes, not intractable, without status epilepticus; Z28.21 Immunization not carried out because of patient refusal; Z88.8 Allergy status to other drugs, medicaments and biological substances; Z87.891 Personal history of nicotine dependence; Z79.899 Other long term (current) drug therapy
CPT/HCPCS: 36415; 80053; 80061; 80175; 80307; 80320; 80329; 81003; 81015; 83036; 84443; 85025; 87086; 90853; 99222; 99233; 99238; 99284; A9270-GY; G0480

== ENCOUNTER 2024-05-07 21:35 | Observation (INO) ==
[2024-05-07 22:06] LABS: ABS Basophils 0.1 10^3/uL (0.0-0.1); ABS Lymphocytes 0.9 10^3/uL (1.0-4.8); ABS Neutrophils 10.1 10^3/uL (1.5-7.6); Eosinophil % 0.1 %; Hematocrit 37.9 % (38-53); Hemoglobin 13.2 g/dL (13.2-16.3); Lymphocyte % 7.3 %; Mean Corpuscular Hemoglobin 29.6 pg (27-33); Mean Corpuscular Hgb Conc 34.8 g/dL (31-36); Mean Platelet Volume 7.6 fL (7.5-11.2); Platelet Count 346 10^3/uL (150-450); Red Blood Count 4.46 10^6/uL (4.06-5.63); Red Cell Distribution Width 13.7 % (12-17)
[2024-05-07] MEDS: Lactated Ringers 1000 ml BAG 1,000 ML IV ONE (22:20)
[2024-05-07 23:50] LABS: Albumin 4.6 g/dL (3.2-5.2); Albumin/Globulin Ratio 1.8 (1-3); Calcium 9.3 mg/dL (8.6-10.3); Creatinine, Serum 1.16 mg/dL (0.67-1.17); Globulin 2.5 g/dL (2-4); Magnesium 2.1 mg/dL (1.9-2.7); Potassium 4.2 mmol/L (3.5-5.0); Total Bilirubin 0.7 mg/dL (0.2-1.0); Total Protein 7.1 g/dL (6.4-8.9); eGFR CKD-EPI 83.7 (>60)
[2024-05-08] MEDS: Tetan/Diph/Pertus SYR(Tdap) 0.5 ML SYR(BOOSTRIX) use SYR contains LATEX IM ONE (00:30)
[2024-05-08] MEDS: Bacitracin OINTMENT TUBE TOPICAL ONE (00:32)
[2024-05-08] MEDS ORDERED: LORazepam 2 mg VIAL 1 ml ONE (01:09)
[2024-05-08] MEDS: LORazepam 2 MG/ML 1 mL Syringe IV ONE (01:17)
[2024-05-08] MEDS: levETIRAcetam 1000MG IVPREMIX 1,000 MG/100 ML BAG IVPB ONE (02:58)
[2024-05-08 03:59] LABS: Urine Benzodiazepine Screen None Detected (None Detect); Urine Cannabinoids Screen None Detected (None Detect); Urine Opiates Screen None Detected (None Detect)
[2024-05-08 05:16] LABS: ABS Lymphocytes 1.3 10^3/uL (1.0-4.8); ABS Monocytes 1.1 10^3/uL (0.0-1.1); ABS Neutrophils 8.8 10^3/uL (1.5-7.6); ABS Nucleated RBC 0.01 10^3/ul; Hematocrit 37.7 % (38-53); Hemoglobin 12.9 g/dL (13.2-16.3); Lymphocyte % 11.9 %; Mean Corpuscular Hgb Conc 34.1 g/dL (31-36); Mean Corpuscular Volume 85.2 fL (80-97); Mean Platelet Volume 7.6 fL (7.5-11.2); Platelet Count 356 10^3/uL (150-450); Red Blood Count 4.43 10^6/uL (4.06-5.63); Red Cell Distribution Width 13.8 % (12-17); White Blood Count 11.3 10^3/uL (3.6-10.2)
[2024-05-08 06:06] LABS: Calcium 8.2 mg/dL (8.6-10.3); Creatinine, Serum 0.96 mg/dL (0.67-1.17); Potassium 3.4 mmol/L (3.5-5.0); eGFR CKD-EPI 105.1 (>60)
[2024-05-08] MEDS: Potassium Chloride LIQUID 20 MEQ/15 ML LIQUID PO ONE (07:44)
[2024-05-08] MEDS ORDERED: LORazepam 2 mg VIAL 1 ml IV PUSH PRN (09:36)
[2024-05-08] MEDS ORDERED: Lorazepam PYXIS KEY PRN (09:41)
[2024-05-08] MEDS: Bacitracin OINTMENT TUBE TOPICAL SCH (12:03)
[2024-05-08 13:57] VITALS: BP 115/69
[2024-05-08] MEDS ORDERED: Enoxaparin 40 MG/0.4 ML SYR SUBCUT SCH (21:00)
[2024-05-11 12:51] LABS: Levetiracetam <1.0 mcg/mL
[2024-05-11 13:07] LABS: Lamotrigine 8.5 mcg/mL (3.0-15.0)
[2024-05-12 10:36] LABS: Amphetamines Screen Blood None Detected; Cannabinoids Screen Blood None Detected; Cocaine Metabolites Screen Bl None Detected; Fentanyl/Acetyl FentanylScreen None Detected; Methadone Metabolites Scrn Bl None Detected; Methamphetamines/MDMA Screen None Detected; Opiates Screen Blood None Detected; Oxycodone/Oxymorphone Scrn Bl None Detected; Phencyclidine Screen Blood None Detected
== END 2024-05-08 18:50 | disposition home or self-care (01) ==
LOC: ED 21:35 → EDHOLD 21:35 → SUATTDRO 05-08 02:40 → MEDTELE 05-08 07:36
PROVIDERS: ADMIT Student in an Organized Health Care Education/Training Program; ATTEND Internal Medicine